=== PATIENT | female | born 1955 | race Caucasian/White ===

== ENCOUNTER → 2019-08-30 08:29 | Outpatient (CLI) | payer MEDICARE, OTHER, SELFPAY ==
[2019-08-30 09:00] LABS: Add Manual Diff / Slide Review NO; Basophils Absolute Auto 0 /uL (0-100); Basophils Percent Auto 0.5 % (0-2); Eosinophils Absolute Auto 100 /uL (0-450); Eosinophils Percent Auto 2.8 % (2-4); Hematocrit 36.9 % (36-46); Hemoglobin 12.4 g/dL (12.0-16.0); Lymphocytes Absolute Auto 1300 /uL (1100-4500); Lymphocytes Percent Auto 36.3 % (25-40); Mean Corpuscular HGB Conc 33.6 % (30-36); Mean Corpuscular Hemoglobin 30.9 PG (26-34); Mean Corpuscular Volume 91.9 fL (80-100); Monocytes Absolute Auto 300 /uL (0-900); Monocytes Percent Auto 9.5 % (3-14); Neutrophils Absolute Auto 1800 /uL (1500-7000); Neutrophils Percent Auto 50.9 % (50-75); Platelet Count 192 X10^3/uL (150-400); Red Blood Cell Count 4.01 X10^6/uL (4.0-5.2); Red Cell Distribution Width 12.8 % (11.6-14.8); White Blood Cell Count 3.5 X10^3/uL (4.5-11.0)
[2019-08-30 09:34] LABS: Alanine Aminotransferase 28 IU/L (<35); Albumin 4.5 g/dL (3.5-5.0); Albumin Globulin Ratio 1.5 (1.0-2.8); Alkaline Phosphatase 51 U/L (38-126); Aspartate Aminotransferase 32 IU/L (14-36); BUN Creatinine Ratio 28.8 (6-22); Bilirubin Total 0.7 mg/dL (0.2-1.3); Blood Urea Nitrogen 23 mg/dL (7-17); Calcium 9.5 mg/dL (8.4-10.2); Carbon Dioxide 32 mmol/L (22-32); Chloride 103 mmol/L (98-107); Cholesterol 180 mg/dL (140-199); Estimated Glomerular Filt Rate > 60.0 mL/min (>60); Globulin 3.1 g/dL (1.7-4.1); Glucose 87 mg/dL (80-110); HDL Cholesterol 46 mg/dL (40-60); HEMOLYSIS < 15 (0-50); LDL Cholesterol Calculated 112 mg/dL (<100); Potassium 4.1 mmol/L (3.4-5.1); Sodium 141 mmol/L (137-145); Total Protein 7.6 g/dL (6.3-8.2); Triglycerides 109 mg/dL (35-150)
[2019-08-30 10:04] LABS: Thyroid Stimulating Hormone 1.89 uIU/mL (0.47-4.68)
== END ==
PROVIDERS: Visit Provider Family Medicine
DX: Z13.0 Encounter for screening for diseases of the blood and blood-forming organs and certain disorders involving the immune mechanism (principal); Z13.1 Encounter for screening for diabetes mellitus; Z13.220 Encounter for screening for lipoid disorders; Z13.29 Encounter for screening for other suspected endocrine disorder; G47.33 Obstructive sleep apnea (adult) (pediatric)
CPT/HCPCS: 36415; 80053; 80061; 84443; 85025

== ENCOUNTER → 2019-12-26 09:30 | Outpatient (CLI) | payer MEDICARE, OTHER, SELFPAY ==
--- NOTE | 2019-12-26 09:36 | DI.RAD.S_ITS ---
PROCEDURE: XR HAND RT MIN 3V INDICATIONS: R thumb injury pain due to trauma TECHNIQUE: 3 views of the hand(s) acquired. COMPARISON: None. FINDINGS: Bones: No fractures or dislocations. A chronic appearing ossicle projecting at the thumb interphalangeal joint Carpal bones are normally aligned. No suspicious bony lesions. First CMC and triscaphe joint degeneration. Distal radioulnar joint degeneration. Focal marginal lucencies present at the PIP joint of the index finger. Small marginal lucency seen at the ulnar aspect of the second MCP joint. These are technically indeterminate in the absence of prior studies Soft tissues: No suspicious soft tissue calcifications. IMPRESSION: No fracture. If the patient's symptoms do not improve recommend followup radiographs in 10 days to assess for healing sclerosis/occult injury. Scattered right hand degenerative changes as above Dictated by: Brendon Fong M.D. on 12/26/2019 at 13:02 Approved by: Brendon Fong M.D. on 12/26/2019 at 13:05
== END ==
PROVIDERS: PCP Family Medicine; Referring Provider Nurse Practitioner; Visit Provider Nurse Practitioner
DX: M79.644 Pain in right finger(s) (principal)
CPT/HCPCS: 73130

== ENCOUNTER → 2020-08-15 11:51 | Outpatient (CLI) | payer MEDICARE, OTHER, SELFPAY | PROVIDERS: PCP Family Medicine; Visit Provider Physician Assistant | DX: R30.0 Dysuria (principal) | CPT/HCPCS: 87086 ==

== ENCOUNTER → 2020-08-15 12:34 | Outpatient (CLI) | payer MEDICARE, OTHER, SELFPAY ==
--- NOTE | 2020-08-15 | DI.CT.S_ITS ---
PROCEDURE: CT ABDOMEN PELVIS W CON INDICATIONS: ABDOMINAL PAIN TECHNIQUE: After the administration of oral and intravenous contrast, 5 mm thick sections acquired from the diaphragms to the symphysis. 5 mm thick coronal and sagittal reformats were performed. For radiation dose reduction, the following was used: automated exposure control, adjustment of mA and/or kV according to patient size. COMPARISON: None. FINDINGS: Image quality: Excellent. ABDOMEN: Lung bases: Lung bases are clear. Heart size is normal. Solid organs: Liver is normal in size and enhancement. Gallbladder is unremarkable . Biliary system is non-dilated. Pancreas enhances normally. Spleen is normal in size and enhancement. No adrenal nodules. Kidneys are normal in size and enhancement, without hydronephrosis. Peritoneum and bowel: Stomach, small bowel, and colon loops are normal in caliber and wall thickness. The appendix is likely visualized and appears thin walled and gas-filled. Ingested radiodense debris is present throughout the colon. There is trace low-density free pelvic fluid. Nodes and vessels: No retroperitoneal or mesenteric adenopathy. Aorta and inferior vena cava are normal in caliber. There are scattered atheromatous calcifications throughout the aorta and iliac arteries bilaterally. Miscellaneous: No ventral hernias. PELVIS: Genitourinary: Bladder wall thickness is normal. The uterus is not visualized and may be surgically absent. The bilateral ovaries are grossly unremarkable. A vaginal ring is noted. Miscellaneous: No inguinal hernias or adenopathy. Posterior right epidural nerve stimulator is noted at the level of the distal sacrum. Bones: No suspicious bony lesions. No vertebral body compression fractures. IMPRESSION: 1. No acute intra-abdominal findings. The appendix is likely visualized and appears normal. Dictated by: Ruma Wiley M.D. on 08/15/2020 at 15:48 Approved by: Ruma Wiley M.D. on 08/15/2020 at 15:52
[2020-08-15 12:53] LABS: Add Manual Diff / Slide Review NO; Basophils Absolute Auto 0 /uL (0-100); Basophils Percent Auto 0.4 % (0-2); Eosinophils Absolute Auto 0 /uL (0-450); Eosinophils Percent Auto 0.9 % (2-4); Hematocrit 36.4 % (36-46); Hemoglobin 12.2 g/dL (12.0-16.0); Lymphocytes Absolute Auto 1400 /uL (1100-4500); Lymphocytes Percent Auto 36.4 % (25-40); Mean Corpuscular HGB Conc 33.4 % (30-36); Mean Corpuscular Hemoglobin 30.3 PG (26-34); Mean Corpuscular Volume 90.6 fL (80-100); Monocytes Absolute Auto 400 /uL (0-900); Monocytes Percent Auto 10.5 % (3-14); Neutrophils Absolute Auto 1900 /uL (1500-7000); Neutrophils Percent Auto 51.8 % (50-75); Platelet Count 172 X10^3/uL (150-400); Red Blood Cell Count 4.02 X10^6/uL (4.0-5.2); Red Cell Distribution Width 12.7 % (11.6-14.8); White Blood Cell Count 3.7 X10^3/uL (4.5-11.0)
[2020-08-15 13:06] LABS: Alanine Aminotransferase 51 IU/L (<35); Albumin 4.3 g/dL (3.5-5.0); Albumin Globulin Ratio 1.4 (1.0-2.8); Alkaline Phosphatase 57 U/L (38-126); Aspartate Aminotransferase 43 IU/L (14-36); BUN Creatinine Ratio 23.2 (6-22); Bilirubin Total 0.4 mg/dL (0.2-1.3); Blood Urea Nitrogen 13 mg/dL (7-17); Carbon Dioxide 31 mmol/L (22-32); Chloride 106 mmol/L (98-107); Estimated Glomerular Filt Rate > 60.0 mL/min (>60); Glucose 94 mg/dL (80-110); HEMOLYSIS < 15 (0-50); Lipase 53 U/L (23-300); Potassium 3.8 mmol/L (3.4-5.1); Sodium 142 mmol/L (137-145); Total Protein 7.3 g/dL (6.3-8.2)
== END ==
PROVIDERS: PCP Family Medicine; Referring Provider Physician Assistant; Visit Provider Physician Assistant
DX: R10.9 Unspecified abdominal pain (principal); R30.0 Dysuria
CPT/HCPCS: 36415; 74177; 80053; 83690; 85025; 87086; Q9967

== ENCOUNTER 2020-08-30 09:52 | Emergency (ER) | payer MEDICARE, OTHER, SELFPAY ==
[2020-08-30] VITALS (12 sets, daily range): BP systolic 123–154; BP diastolic 63–83; PULSE 62–73; RESP 18; TEMP 36.4; O2SAT 97–99
[2020-08-30] MEDS: LIDOCAINE PATCH 1 EACH ADH..PATCH TOP (12:54)
[2020-08-30 13:22] LABS: Add Manual Diff / Slide Review NO; Basophils Absolute Auto 0 /uL (0-100); Basophils Percent Auto 0.3 % (0-2); Eosinophils Absolute Auto 100 /uL (0-450); Eosinophils Percent Auto 0.7 % (2-4); Hematocrit 40.1 % (36-46); Hemoglobin 13.4 g/dL (12.0-16.0); Lymphocytes Absolute Auto 1600 /uL (1100-4500); Lymphocytes Percent Auto 19.5 % (25-40); Mean Corpuscular HGB Conc 33.4 % (30-36); Mean Corpuscular Hemoglobin 30.2 PG (26-34); Mean Corpuscular Volume 90.5 fL (80-100); Monocytes Absolute Auto 600 /uL (0-900); Monocytes Percent Auto 7.7 % (3-14); Neutrophils Absolute Auto 5800 /uL (1500-7000); Neutrophils Percent Auto 71.8 % (50-75); Platelet Count 209 X10^3/uL (150-400); Red Blood Cell Count 4.43 X10^6/uL (4.0-5.2); Red Cell Distribution Width 12.6 % (11.6-14.8); White Blood Cell Count 8.1 X10^3/uL (4.5-11.0)
[2020-08-30 13:24] LABS: Lactate (Lactic Acid) 1.1 mmol/L (0.7-2.1)
[2020-08-30 13:28] LABS: Alanine Aminotransferase 40 IU/L (<35); Albumin 4.5 g/dL (3.5-5.0); Albumin Globulin Ratio 1.4 (1.0-2.8); Alkaline Phosphatase 53 U/L (38-126); Aspartate Aminotransferase 31 IU/L (14-36); BUN Creatinine Ratio 36.1 (6-22); Bilirubin Total 0.5 mg/dL (0.2-1.3); Blood Urea Nitrogen 22 mg/dL (7-17); Calcium 9.5 mg/dL (8.4-10.2); Carbon Dioxide 34 mmol/L (22-32); Chloride 100 mmol/L (98-107); Estimated Glomerular Filt Rate > 60.0 mL/min (>60); Globulin 3.3 g/dL (1.7-4.1); Glucose 122 mg/dL (80-110); HEMOLYSIS < 15 (0-50); Sodium 139 mmol/L (137-145); Total Protein 7.8 g/dL (6.3-8.2)
[2020-08-30 13:35] LABS: C-Reactive Protein Quant < 0.5 mg/dL (<1.0)
[2020-08-30 14:02] LABS: Erythrocyte Sedimentation Rate 5 MM/HR (0-20)
--- NOTE | 2020-08-30 14:02 | ED_ITS ---
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 Patient also reports numbness to left lateral mid thigh down to bottom of her foot associated with pain. Patient had completed 6 days course of prednisone 30 mg and she is currently on 20 mg on her 3rd day without any improvements. She reports from yesterday she also has low back pain with this. Patient usually does not use any ambulatory assistance devices but she has been using a cane due to increase in pain. Pain increases with sitting and lying down, raising her legs affected leg, and movements. Patient denies known trauma, falls, fever, chills, nausea or vomiting. Patient contributes the back pain to taking care and carrying the 1 year old grandchild. Patient denies urinary symptoms or changes in her stool incontinence. Patient denies numbness to her groin region. Patient had in the past back went out and had received physical therapy and the duration pain not as long as this time. Patient reports pain as 7/10 and with movements and ambulation pain increases up to 10/10. Patient denies history of back surgery or IV drug use. Patient is currently taking Celebrex, tramadol for chronic pain and she states I do not want more pain medications and declines even Tylenol since she has some abdominal pain couple of weeks ago with elevated liver function test which has resolved and seek medical attention at [facility] with lab tests and CT of abdomen/pelvis. Related Data Home Medications Medication Instructions Recorded Confirmed tramadol 50 mg tablet 50 mg PO Q4-6H PRN 11/11/18 08/15/20 zolpidem 12.5 mg tablet,extended 12.5 mg PO BEDTIME PRN 11/11/18 08/15/20 release,multiphase celecoxib 100 mg capsule 100 mg PO BID 04/21/19 08/15/20 gabapentin 600 mg tablet See Rx Instructions PO BID 04/21/19 08/15/20 tramadol 100 mg tablet,extended 100 mg PO BEDTIME tab 04/21/19 08/15/20 release 24 hr acetaminophen 500 mg tablet 1,000 mg PO .QD tab 12/26/19 08/15/20 cetirizine 10 mg tablet 10 mg PO DAILY PRN tab 12/26/19 08/15/20 cholecalciferol (vitamin D3) 50 2,000 unit PO DAILY 12/26/19 08/15/20 mcg (2,000 unit) capsule esomeprazole magnesium 20 mg 20 mg PO DAILY 12/26/19 08/15/20 capsule,delayed release levomefolate calcium 15 mg tablet 15 mg PO QID tab 12/26/19 08/15/20 Previous Rx's Medication Instructions Recorded estradiol 0.025 mg/24 hr 1 patch TRANSDERMAL 2XW #24 each 08/22/19 semiweekly transdermal patch albuterol sulfate 90 mcg/actuation 2 puff INHALATION Q4-6H PRN #8.5 10/10/19 aerosol inhaler gram bupropion HCl 300 mg 24 hr tablet, 300 mg PO QAM #90 tab 05/15/20 extended release lidocaine 1 patch TOP DAILY PRN #30 each 08/30/20 Allergies Allergy/AdvReac Type Severity Reaction Status Date / Time ceftriaxone [CEFTRIAXONE] Allergy Severe drug fever Verified 08/30/20 10:20 codeine [CODEINE] AdvReac Mild n\v Verified 08/30/20 10:20 hydrocodone [From VICODIN] AdvReac Mild n/v Verified 08/30/20 10:20 Review of Systems <RADHA Bundy - Last Filed: 08/30/20 20:54> Review of Systems Narrative: General: Denies fever, chills, fatigue, malaise, sweats. HEENT: Denies sinus pain, ear pain, sore throat, difficulty swallowing, dizziness. Respiratory: Denies dyspnea, cough, wheezing, hemoptysis, sputum. Cardiovascular: Denies chest pain, palpitations, orthopnea, edema. Gastrointestinal: Denies nausea, vomiting, abdominal pain, diarrhea, constipation, melena. : Denies dysuria, frequency, incontinence, hematuria, urinary retention. Musculoskeletal: See HPI Skin: Denies rash, skin lesions, or other. Neurologic: Denies weakness, headache, numbness, change in speech, confusion, seizures, incoordination. Psychiatric: No concerning psychosocial issues. 12-point review of systems is negative except for those stated above. 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) History of urinary incontinence (Chronic ~1985) Measles (Resolved) Migraines (Chronic) Mumps (Resolved) Osteoarthritis (Chronic ~2007) Polycystic kidney disease (Chronic) Recurrent sinusitis (Chronic) Seasonal allergies (Chronic) Sleep apnea (Chronic ~2009) Urinary retention (Chronic ~2002) Surgical History Anesthesia (Resolved) History of sinus surgery (Resolved) History of tonsillectomy (Resolved) 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 Head: Normal cephalic, atraumatic. No scalp or temporal tenderness, palpable mass or rash. EYES: Pupils are equal, round, and reactive to light and accommodation. Extraocular muscles are intact bilaterally. There is no subconjunctival hemorrhage, exudate and sclera non-icteric. ENT: Hearing grossly intact. Nose without bleeding, purulent discharge or deviation. Mucous membrane moist, no mucosal lesion. Throat without erythema, tonsillar hypertrophy or exudate. Uvula in midline, airway patent. Neck: Trachea in midline. No JVD, non-tender without lymphadenopathy. No masses or thyroid megaly. Supple, non-tender and no meningeal signs. CARDIAC: Normal regular rate and rhythm without murmurs, gallops, or rubs. No chest wall tenderness. No peripheral edema, cyanosis or pallor. Capillary refill is less than 2 seconds. RESPIRATORY: Lungs are clear to auscultate bilaterally. No cough, wheezes, rales, or rhonchi. No stridor, respiratory distress, increase work of breathing, or accessary muscle used. ABD: Abdomen soft, nontender and non-distended. No guarding or rebound tenderness to palpate. Bowel sounds are normal in all 4 quadrants. There is no palpable masses or organomegaly. EXT: Full painless ROM of all extremities with no loss of sensation, strength, effusion or edema. SKIN: Warm, dry, normal color for patient. No erythema, lesions or rash over visible areas. BACK: No deformity or crepitance. No flank tenderness. No mid spinous tenderness or paraspinous tenderness, mass, erythema, or crepitus appreciated. Left back pain with left leg raise >45 degree. Bilateral lower extremity strength equal. Intact sensation of light touch on bilateral lower extremities but reports slightly decreased in left lateral lower extremity. NEUROLOGICAL: Alert and oriented to place, time and person. Sensation and motor function intact bilaterally. No facial droops, dysphasia. PSYCHIATRIC: Good judgement and reason, without hallucinations, abnormal affect or abnormal behaviors during the examination. Patient is not suicidal. Initial Vital Signs Initial Vital Signs: Vital Signs Temperature 97.5 F L 08/30/20 10:13 Pulse Rate 73 08/30/20 10:13 Respiratory Rate 18 08/30/20 10:13 Blood Pressure 137/72 08/30/20 10:13 Pulse Oximetry 99 08/30/20 10:13 <Doreen Romero, DO - Last Filed: 09/04/20 07:21> Initial Vital Signs Initial Vital Signs: Vital Signs Temperature 97.5 F L 08/30/20 10:13 Pulse Rate 73 08/30/20 10:13 Respiratory Rate 18 08/30/20 10:13 Blood Pressure 137/72 08/30/20 10:13 Pulse Oximetry 99 08/30/20 10:13 Scores <[facility] - Last Filed: 08/30/20 20:54> GCS Kiah coma scale eye opening: Spontaneous [place] coma scale verbal response: Orientated [place] coma scale motor response: Obey commands [place] coma scale total score: 15 qSOFA Altered Mental Status (GCS <15): No Respiratory rate greater than/equal to 22: No Systolic blood pressure less than or equal to 100: No qSOFA Total: 0 0-1 Not High Risk 1-3 High risk Course <[facility] - Last Filed: 08/30/20 20:54> Orders Ordered: Discontinued Medications Lidocaine (Lidoderm) 1 each TOP NOW ONE Stop: 08/30/20 12:43 Last Admin: 08/30/20 12:54 Dose: 1 each Documented by: YIN Reevaluation(s) Reevaluation #1: Patient continue to contact to get information of nerve stimulator in right sacrum Time: 14:12 Reevaluation #2: Patient was able to get information on her nerve stimulator and was recommended no MRI test at this time. X-ray test of lumbar and sacrum ordered. Time: 14:15 Vital Signs Vital signs: Vital Signs - 8 hr 08/30/20 13:00 08/30/20 13:05 08/30/20 13:30 Pulse Rate 65 66 68 Blood Pressure 136/63 141/64 H Pulse Oximetry 98 98 98 08/30/20 14:00 08/30/20 14:42 08/30/20 15:00 Pulse Rate 70 66 64 Blood Pressure 132/70 153/67 H 123/83 Pulse Oximetry 97 98 97 <Doreen Romero DO - Last Filed: 09/04/20 07:21> Orders Ordered: Discontinued Medications Lidocaine (Lidoderm) 1 each TOP NOW ONE Stop: 08/30/20 12:43 Last Admin: 08/30/20 12:54 Dose: 1 each Documented by: DHALE Vital Signs Vital signs: Vital Signs - 8 hr 08/30/20 13:00 08/30/20 13:05 08/30/20 13:30 Pulse Rate 65 66 68 Blood Pressure 136/63 141/64 H Pulse Oximetry 98 98 98 08/30/20 14:00 08/30/20 14:42 08/30/20 15:00 Pulse Rate 70 66 64 Blood Pressure 132/70 153/67 H 123/83 Pulse Oximetry 97 98 97 MDM - Back Pain/Injury <RADHA Bundy - Last Filed: 08/30/20 20:54> Differential Diagnosis Differential diagnosis: Likely lumbar radiculopathy, sciatica, discitis and other (Cauda equina syndrome, ) Medical Records Attestation: I reviewed the patient's medical records. Lab Data Attestation: I reviewed the patient's lab results. Result diagrams: 08/30/20 13:02 08/30/20 13:02 Labs: Lab Results 08/30/20 08/30/20 08/30/20 Range/Units 13:02 13:02 13:02 WBC 8.1 (4.5-11.0) X10^3/uL RBC 4.43 (4.0-5.2) X10^6/uL Hgb 13.4 (12.0-16.0) g/dL Hct 40.1 (36-46) % MCV 90.5 (80-100) fL MCH 30.2 (26-34) PG MCHC 33.4 (30-36) % RDW 12.6 (11.6-14.8) % Plt Count 209 (150-400) X10^3/uL Neut % (Auto) 71.8 (50-75) % Lymph % (Auto) 19.5 L (25-40) % [place] % (Auto) 7.7 (3-14) % Eos % (Auto) 0.7 L (2-4) % Baso % (Auto) 0.3 (0-2) % Neut # (Auto) 5800 (6646-6887) /uL Lymph # (Auto) 1600 (3384-8275) /uL [place] # (Auto) 600 (0-900) /uL Eos # (Auto) 100 (0-450) /uL Baso # (Auto) 0 (0-100) /uL ESR 5 (0-20) MM/HR Sodium 139 (137-145) mmol/L Potassium 4.0 (3.4-5.1) mmol/L Chloride 100 (98-107) mmol/L Carbon Dioxide 34 H (22-32) mmol/L BUN 22 H (7-17) mg/dL Creatinine 0.61 (0.52-1.04) mg/dL Estimated GFR > 60.0 (>60) mL/min BUN/Creatinine Ratio 36.1 H (6-22) Glucose 122 H (80-110) mg/dL Lactate 1.1 (0.7-2.1) mmol/L Calcium 9.5 (8.4-10.2) mg/dL Total Bilirubin 0.5 (0.2-1.3) mg/dL AST 31 (14-36) IU/L ALT 40 H (<35) IU/L Alkaline Phosphatase 53 (38-126) U/L C-Reactive Protein < 0.5 (<1.0) mg/dL Total Protein 7.8 (6.3-8.2) g/dL Albumin 4.5 (3.5-5.0) g/dL Globulin 3.3 (1.7-4.1) g/dL Albumin/Globulin Ratio 1.4 (1.0-2.8) Urine Dip Bedside Urine Glucose Negative Bedside Urine Bilirubin - Negative Bedside Urine Ketone - Negative Urine Specific [place] 1.010 Bedside Urine Occult Blood - Negative Bedside Urine pH 6.5 Bedside Urine Protein - Negative Bedside Urine Urobilinogen - Negative Bedside Urine Nitrite - Negative Bedside Urine Leukocytes - Negative Esterase Imaging Data XR-Lumbar: Radiologist's Impression: [address] [address] XRay Report Signed Patient: Sara Smith FMR#: [id number] : 4Acct:[id number] Age/Sex: 65 / FDate of Service: 08/30/20 Loc: ED Accession Number: [id number] Procedure: XR lumbar spine 2-3V Ordering Provider: Heber Sotelo PROCEDURE: XR LUMBAR SPINE 2-3V INDICATIONS: pain, numbness to left leg TECHNIQUE: 3 views of the lumbar spine were acquired. COMPARISON: [facility], CT, CT ABDOMEN PELVIS W CON, 08/15/2020, 14:33. [facility], CR, XR SACRUM COCCYX MIN 2V, 08/30/2020, 14:31. FINDINGS: Bones: 5 [id number] vertebrae are present. There is minimal anterolisthesis at L5-S1. No vertebral body compression fractures. No suspicious bony lesions. Degenerative changes are seen, with moderate to severe disc space narrowing at L2-3, L3-4, and L4-5. Mild disc space narrowing is seen at L5-S1. Endplate irregularity and sclerosis are seen, which are most prominent at L3-L4. Bridging endplate osteophytes are seen on the right at L3-4. Lower lumbar spine facet arthropathy is seen. Soft tissues: Overlying bowel gas pattern is normal. No suspicious soft tissue calcifications. There is a right-sided sacral stimulator seen. Sterilization clips are seen on both sides. IMPRESSION: Degenerative changes are seen throughout, without an acute abnormality seen. Right-sided sacral stimulator noted. Dictated by: Loy Amezcua M.D. on 08/30/2020 at 13:46 Approved by: Loy Amezcua M.D. on 08/30/2020 at 13:47 XR-Sacrum and coccyx: Radiologist's Impression: [place] [address] XRay Report Signed Patient: Sara Smith FMR#: [id number] : 4Acct:[id number] Age/Sex: 65 / FDate of Service: 08/30/20 Loc: ED Accession Number: [id number] Procedure: XR sacrum coccyx min 2V Ordering Provider: Heber Sotelo PROCEDURE: XR SACRUM COCCYX MIN 2V INDICATIONS: pain, numbness to left leg TECHNIQUE: 3 views of the sacrum and coccyx acquired. COMPARISON: [facility], CR, XR LUMBAR SPINE 2-3V, 08/30/2020, 14:31. [facility], CT, CT ABDOMEN PELVIS W CON, 08/15/2020, 14:33. FINDINGS: Bones: No fractures or dislocations. No suspicious bony lesions. Age- appropriate lower lumbar spine degenerative changes are noted. Soft tissues: Visualized bowel gas pattern is normal. No suspicious soft tissue densities. There is a right-sided sacral stimulator seen. Bilateral sterilization clips are seen. IMPRESSION: Unremarkable plain films of the sacrum and coccyx. Dictated by: Loy Amezcua M.D. on 08/30/2020 at 13:48 Approved by: Loy Amezcua M.D. on 08/30/2020 at 13:4 [facility] Narrative Medical decision making narrative: This is a 65 year female with chief complain of nontraumatic left buttock pain radiating down to left ankle and numbness to left later mid thigh to heel. Patient has been taking Prednisone for tapering dose for 9 days from 30mg to now on 20mg daily without improvement. She is also taking Celebrex daily for osteoarthritis. Patient declines taking Tylenol due to recent but resolved abdominal pain with mildly elevated ALT to 40 and contributes to daily Tylenol use at least 2 to 3 times a day for pain. MRI test was considered and was able to obtain at 1500 this afternoon but due to nerve stimulator for fecal incontinence the patient has in right sacrum region, MRI test cancelled after the patient consulted other medical provider whether MRI test could be done. Patient declined other medications but is willing to try lidocaine patch for back pain. Lumbar and sacrum x-ray test was ordered instead and obtained. Lumbar x-ray test shows degenerative changes without acute abnormality with moderate to severe disc space narrowing at L2-L3, L3-L4, and L4-L5 and mild disc space narrowing at L5-S1. Sacrum x-ray without acute fractures or dislocations and there is a right-sided sacral stimulator seen. Patient recommended to follow up with primary care physician for considering physical therapy, and to follow-up with [facility] orthopedist for further evaluation and treatment. Patient is discharged to home with lidocaine patch to use as needed. Return precautions were discussed and Patient verbalized understanding in in agreement with the treatment plan <Doreen Romero, DO - Last Filed: 09/04/20 07:21> Lab Data Labs: Lab Results 08/30/20 08/30/20 08/30/20 Range/Units 13:02 13:02 13:02 WBC 8.1 (4.5-11.0) X10^3/uL RBC 4.43 (4.0-5.2) X10^6/uL Hgb 13.4 (12.0-16.0) g/dL Hct 40.1 (36-46) % MCV 90.5 (80-100) fL MCH 30.2 (26-34) PG MCHC 33.4 (30-36) % RDW 12.6 (11.6-14.8) % Plt Count 209 (150-400) X10^3/uL Neut % (Auto) 71.8 (50-75) % Lymph % (Auto) 19.5 L (25-40) % [place] % (Auto) 7.7 (3-14) % Eos % (Auto) 0.7 L (2-4) % Baso % (Auto) 0.3 (0-2) % Neut # (Auto) 5800 (0350-6879) /uL Lymph # (Auto) 1600 (6086-6010) /uL [place] # (Auto) 600 (0-900) /uL Eos # (Auto) 100 (0-450) /uL Baso # (Auto) 0 (0-100) /uL ESR 5 (0-20) MM/HR Sodium 139 (137-145) mmol/L Potassium 4.0 (3.4-5.1) mmol/L Chloride 100 (98-107) mmol/L Carbon Dioxide 34 H (22-32) mmol/L BUN 22 H (7-17) mg/dL Creatinine 0.61 (0.52-1.04) mg/dL Estimated GFR > 60.0 (>60) mL/min BUN/Creatinine Ratio 36.1 H (6-22) Glucose 122 H (80-110) mg/dL Lactate 1.1 (0.7-2.1) mmol/L Calcium 9.5 (8.4-10.2) mg/dL Total Bilirubin 0.5 (0.2-1.3) mg/dL AST 31 (14-36) IU/L ALT 40 H (<35) IU/L Alkaline Phosphatase 53 (38-126) U/L C-Reactive Protein < 0.5 (<1.0) mg/dL Total Protein 7.8 (6.3-8.2) g/dL Albumin 4.5 (3.5-5.0) g/dL Globulin 3.3 (1.7-4.1) g/dL Albumin/Globulin Ratio 1.4 (1.0-2.8) Urine Dip Bedside Urine Glucose Negative Bedside Urine Bilirubin - Negative Bedside Urine Ketone - Negative Urine Specific [place] 1.010 Bedside Urine Occult Blood - Negative Bedside Urine pH 6.5 Bedside Urine Protein - Negative Bedside Urine Urobilinogen - Negative Bedside Urine Nitrite - Negative Bedside Urine Leukocytes - Negative Esterase Discharge Plan Departure Patient Disposition: Home Clinical Impression: Low back pain radiating to left leg Discharge Date/Time: 08/30/20 15:38 Instructions: DI for Low Back Pain Activity Restrictions/Additional Instructions: You have been diagnosed with [lumbar and sacral pain radiating to left leg with numbness to lateral leg]. What to do: *Take your medications as directed. Please continue with your medications and had Voltaren gel and lidocaine patch. Lidocaine patch stays on for 12 hours and off for 12 hours. You can use for tear in gel up to 3 to 4 times a day on affected site. *Follow up with your primary care provider/[facility] in 2-3 days, call for an appointment. Let them know you were seen in the ED and that we asked you to be seen in follow up. *Return to ED if you have any new, worsening, or concerning symptoms, such as [worsening pain, weakness/tingling, fever, groin numbness, different or worsening incontinence for stools or bladder, chest pain, breathing difficulty or any acute concerns.]. Prescriptions: New lidocaine 5 % adhesive patch,medicated 1 patch TOP DAILY PRN (Reason: pain) Qty: 30 RF: 0 No Action zolpidem 12.5 mg tablet,ext release multiphase 12.5 mg PO BEDTIME PRNRF: 0 tramadol 50 mg tablet 50 mg PO Q4-6H PRNRF: 0 celecoxib 100 mg capsule 100 mg PO BID RF: 0 tramadol 100 mg tablet extended release 24 hr 100 mg PO BEDTIME RF: 0 gabapentin 600 mg tablet See Rx Instructions PO BID RF: 0 estradiol [Vivelle-Dot] 0.025 mg/24 hr patch semiweekly 1 patch Transdermal 2XW Qty: 24 RF: 3 albuterol sulfate 90 mcg/actuation HFA aerosol inhaler 2 puff INHALATION Q4-6H PRN (Reason: bronchospasm) Qty: 8.5 RF: 11 bupropion HCl [Wellbutrin XL] 300 mg tablet extended release 24 hr 300 mg PO QAM Qty: 90 RF: 1 esomeprazole magnesium 20 mg capsule,delayed release(DR/EC) 20 mg PO DAILY RF: 0 cetirizine [Zyrtec] 10 mg tablet 10 mg PO DAILY PRNRF: 0 acetaminophen 500 mg tablet 1,000 mg PO .QD RF: 0 levomefolate calcium [L-Methylfolate] 15 mg tablet 15 mg PO QID RF: 0 cholecalciferol (vitamin D3) 50 mcg (2,000 unit) capsule 2,000 unit PO DAILY RF: 0 Referrals: [facility] [Provider Group] Trudi Pereyra DO [Primary Care Provider] - <Doreen Romero DO - Last Filed: 09/04/20 07:21> Cosign ED Attending Cosignature Attestation: I was immediately available in the department for consultation. This documentation has been reviewed. Supervised by Doreen Romero DO
--- NOTE | 2020-08-30 14:14 | DI.RAD.S_ITS ---
PROCEDURE: XR SACRUM COCCYX MIN 2V INDICATIONS: pain, numbness to left leg TECHNIQUE: 3 views of the sacrum and coccyx acquired. COMPARISON: [facility], CR, XR LUMBAR SPINE 2-3V, 08/30/2020, 14:31. [facility], CT, CT ABDOMEN PELVIS W CON, 08/15/2020, 14:33. FINDINGS: Bones: No fractures or dislocations. No suspicious bony lesions. Age-appropriate lower lumbar spine degenerative changes are noted. Soft tissues: Visualized bowel gas pattern is normal. No suspicious soft tissue densities. There is a right-sided sacral stimulator seen. Bilateral sterilization clips are seen. IMPRESSION: Unremarkable plain films of the sacrum and coccyx. Dictated by: Loy Amezcua M.D. on 08/30/2020 at 13:48 Approved by: Loy Amezcua M.D. on 08/30/2020 at 13:48
--- NOTE | 2020-08-30 14:14 | DI.RAD.S_ITS ---
PROCEDURE: XR LUMBAR SPINE 2-3V INDICATIONS: pain, numbness to left leg TECHNIQUE: 3 views of the lumbar spine were acquired. COMPARISON: [facility], CT, CT ABDOMEN PELVIS W CON, 08/15/2020, 14:33. [facility], CR, XR SACRUM COCCYX MIN 2V, 08/30/2020, 14:31. FINDINGS: Bones: 5 [id number] vertebrae are present. There is minimal anterolisthesis at L5-S1. No vertebral body compression fractures. No suspicious bony lesions. Degenerative changes are seen, with moderate to severe disc space narrowing at L2-3, L3-4, and L4-5. Mild disc space narrowing is seen at L5-S1. Endplate irregularity and sclerosis are seen, which are most prominent at L3-L4. Bridging endplate osteophytes are seen on the right at L3-4. Lower lumbar spine facet arthropathy is seen. Soft tissues: Overlying bowel gas pattern is normal. No suspicious soft tissue calcifications. There is a right-sided sacral stimulator seen. Sterilization clips are seen on both sides. IMPRESSION: Degenerative changes are seen throughout, without an acute abnormality seen. Right-sided sacral stimulator noted. Dictated by: Loy Amezcua M.D. on 08/30/2020 at 13:46 Approved by: Loy Amezcua M.D. on 08/30/2020 at 13:47
== END 2020-08-30 15:38 | disposition home or self-care (01) ==
PROVIDERS: Emergency Provider Nurse Practitioner Family; PCP Family Medicine
DX: M54.5 Low back pain (principal); M79.605 Pain in left leg; R20.0 Anesthesia of skin
CPT/HCPCS: 36415; 72100; 72220; 80053; 81003; 83605; 85025; 85651; 86140; 99284

== ENCOUNTER → 2021-04-07 17:22 | Outpatient (CLI) | payer MEDICARE, OTHER, SELFPAY ==
--- NOTE | 2021-04-07 17:26 | DI.RAD.S_ITS ---
PROCEDURE: XR HAND RT MIN 3V INDICATIONS: pain TECHNIQUE: 3 views of the hand(s) acquired. COMPARISON: [facility], CR, XR HAND RT MIN 3V, 12/26/2019, 9:31. FINDINGS: Bones: No fractures or dislocations. Carpal bones are normally aligned. No suspicious bony lesions. First carpometacarpal joint space narrowing subchondral cysts noted. Soft tissues: No suspicious soft tissue calcifications. IMPRESSION: 1st carpometacarpal osteoarthritis Dictated by: Joseph Davis M.D. on 04/07/2021 at 17:10 Approved by: Joseph Davis M.D. on 04/07/2021 at 17:12
== END ==
PROVIDERS: PCP Family Medicine; Referring Provider Physician Assistant; Visit Provider Physician Assistant
DX: S66.911A Strain of unspecified muscle, fascia and tendon at wrist and hand level, right hand, initial encounter (principal); M79.641 Pain in right hand; M19.041 Primary osteoarthritis, right hand; X58.XXXA Exposure to other specified factors, initial encounter
CPT/HCPCS: 73130

== ENCOUNTER → 2021-05-14 14:32 | Outpatient (CLI) | payer MEDICARE, OTHER, SELFPAY ==
--- NOTE | 2021-05-14 14:34 | DI.MG.S_ITS ---
BILATERAL DIGITAL SCREENING MAMMOGRAM 3D/2D WITH CAD: 05/14/2021 CLINICAL: Routine screening. Comparison is made to exams dated: 02/14/2019 mammogram, 01/17/2018 mammogram, and 12/28/2016 mammogram - outside location. The tissue of both breasts is heterogeneously dense. This may lower the sensitivity of mammography. Current study was also evaluated with a Computer Aided Detection (CAD) system. No significant masses, calcifications, or other findings are seen in either breast. There has been no significant interval change. IMPRESSION: NEGATIVE There is no mammographic evidence of malignancy. A 1 year screening mammogram is recommended. This exam was interpreted at Station ID: [id number]. NOTE: For mammograms, a report in lay terms will be sent to the patient. Approximately 15% of breast malignancies will not be visualized mammographically. In the management of a palpable breast mass, a negative mammogram must not discourage biopsy of a clinically suspicious lesion. Electronically Signed By: Jayden naidu/rose marie:05/14/2021 15:16:14 letter sent: Normal Exam ACR BI-RADS Category 1: Negative 3341F
== END ==
PROVIDERS: PCP Family Medicine; Referring Provider Family Medicine; Visit Provider Family Medicine
DX: Z12.31 Encounter for screening mammogram for malignant neoplasm of breast (principal); Z78.0 Asymptomatic menopausal state; Z79.890 Hormone replacement therapy
CPT/HCPCS: 77063; 77067; 77080

== ENCOUNTER → 2022-07-14 11:12 | Outpatient (CLI) | payer MEDICARE, OTHER, SELFPAY ==
--- NOTE | 2022-07-14 | DI.MG.S_ITS ---
BILATERAL DIGITAL SCREENING MAMMOGRAM 3D/2D WITH CAD: 07/14/2022 CLINICAL: Routine screening. Comparison is made to exams dated: 05/14/2021 mammogram - [facility], 02/14/2019 mammogram, and 01/17/2018 mammogram - outside location. Both breasts are heterogeneously dense, which may obscure small masses (category c / 51-75% glandular tissue). Current study was also evaluated with a Computer Aided Detection (CAD) system. No significant masses, calcifications, or other findings are seen in either breast. There has been no significant interval change. IMPRESSION: NEGATIVE There is no mammographic evidence of malignancy. A 1 year screening mammogram is recommended. Based on the Tyrer Cuzick model (a risk assessment model) the patient's lifetime risk is 8.6% and her 10 year risk is 4.9%. According to the ACR, ACS, and NCCN guidelines, an annual breast MRI exam along with mammogram is recommended if the patient's lifetime risk is 20% or greater. This exam was interpreted at Station ID: [id number]. NOTE: For mammograms, a report in lay terms will be sent to the patient. Approximately 15% of breast malignancies will not be visualized mammographically. In the management of a palpable breast mass, a negative mammogram must not discourage biopsy of a clinically suspicious lesion. Electronically Signed By: Antony bautista/rose marie:07/14/2022 18:02:33 letter sent: Normal Exam ACR BI-RADS Category 1: Negative 3341F
== END ==
PROVIDERS: PCP Family Medicine; Referring Provider Family Medicine; Visit Provider Family Medicine
DX: Z12.31 Encounter for screening mammogram for malignant neoplasm of breast (principal)
CPT/HCPCS: 77063; 77067

== ENCOUNTER → 2022-12-14 08:57 | Outpatient (CLI) | payer MEDICARE, OTHER, SELFPAY ==
[2022-12-14 11:12] LABS: Add Manual Diff / Slide Review NO; Basophils Absolute Auto 0 /uL (0-100); Basophils Percent Auto 0.8 % (0-2); Eosinophils Absolute Auto 100 /uL (0-450); Eosinophils Percent Auto 2.9 % (2-4); Hematocrit 37.2 % (36-46); Hemoglobin 12.2 g/dL (12.0-16.0); Lymphocytes Absolute Auto 1100 /uL (1100-4500); Lymphocytes Percent Auto 28.5 % (25-40); Mean Corpuscular HGB Conc 32.8 % (30-36); Mean Corpuscular Hemoglobin 29.3 PG (26-34); Mean Corpuscular Volume 89.2 fL (80-100); Monocytes Absolute Auto 300 /uL (0-900); Monocytes Percent Auto 7.3 % (3-14); Neutrophils Absolute Auto 2400 /uL (1500-7000); Neutrophils Percent Auto 60.5 % (50-75); Platelet Count 207 X10^3/uL (150-400); Red Blood Cell Count 4.18 X10^6/uL (4.0-5.2)
[2022-12-14 11:40] LABS: Alanine Aminotransferase 29 IU/L (<35); Albumin 4.3 g/dL (3.5-5.0); Albumin Globulin Ratio 1.3 (1.0-2.8); Alkaline Phosphatase 57 U/L (38-126); Aspartate Aminotransferase 32 IU/L (14-36); BUN Creatinine Ratio 26.2 (6-22); Bilirubin Total 0.4 mg/dL (0.2-1.3); Blood Urea Nitrogen 16 mg/dL (7-17); Carbon Dioxide 30 mmol/L (22-32); Chloride 103 mmol/L (98-107); Cholesterol 183 mg/dL (140-199); Estimated Glomerular Filt Rate > 60 mL/min (>60); Globulin 3.4 g/dL (1.7-4.1); Glucose 91 mg/dL (80-110); HDL Cholesterol 51 mg/dL (40-60); HEMOLYSIS 17 (0-50); LDL Cholesterol Calculated 113 mg/dL (<100); Potassium 4.4 mmol/L (3.4-5.1); Sodium 140 mmol/L (137-145); Total Protein 7.7 g/dL (6.3-8.2); Triglycerides 95 mg/dL (35-150)
[2022-12-14 11:45] LABS: HEMOLYSIS < 15 (0-50); Iron 62 ug/dL (37-170)
[2022-12-14 11:56] LABS: Percent Iron Saturation 17 % (15-50); Total Iron Binding Capacity 365 ug/dL (265-497); Transferrin 267 mg/dL (206-381)
[2022-12-14 12:14] LABS: Ferritin 25 ng/mL (11-264)
[2022-12-14 12:18] LABS: TSH w/ Reflex to FT4 2.23 uIU/mL (0.47-4.68)
== END ==
PROVIDERS: PCP Family Medicine; Referring Provider Physician Assistant; Visit Provider Physician Assistant
DX: R55 Syncope and collapse (principal); G47.33 Obstructive sleep apnea (adult) (pediatric); R53.83 Other fatigue; R01.1 Cardiac murmur, unspecified; Z13.220 Encounter for screening for lipoid disorders; Z13.6 Encounter for screening for cardiovascular disorders
CPT/HCPCS: 36415; 80053; 80061; 82728; 83540; 83550; 84443; 85025

== ENCOUNTER → 2022-12-14 08:59 | Outpatient (CLI) | payer MEDICARE, OTHER, SELFPAY ==
--- NOTE | 2022-12-14 09:01 | DI.RAD.S_ITS ---
PROCEDURE: XR CHEST 2V INDICATIONS: Syncopal episode TECHNIQUE: 2 views of the chest were acquired. COMPARISON: Merged With [facility], , CHEST 2 VIEW, 02/16/2017, 10:52. FINDINGS: Surgical changes and devices: None. Lungs and pleura: Lungs are clear. No pleural effusions or pneumothorax. Mediastinum: Mediastinal contours are normal. Heart size is normal. Bones and chest wall: No suspicious bony abnormalities. Soft tissues appear unremarkable. IMPRESSION: No acute cardiopulmonary process. Dictated by: Harshil Lema M.D. on 12/14/2022 at 9:43 Approved by: Harshil Lema M.D. on 12/14/2022 at 9:43
--- NOTE | 2022-12-14 09:01 | DI.ECHO.S_ITS ---
[facility]---------+ [facility] +---------+ : : [address] : : : : [id number] : : : : Phone: [phone]+ Echocardiogram Report + + :Name: LANRE DINH Study Date: 12/14/2022 Height: 69 in : :[facility] ReadingLocation: Weight: 180 lb : :Account #: [facility] Gender: Female BSA: 2.0 m2 : :: 1955 Age: 67 yrs BP: 141/71 mmHg: :Reason For Study: SYNCOPE : :Ordering Physician: LILIAM, : :KRISTINA Hanna Performed By: Nathaly Aleman : :Referring: KRISTINA RICKETTS : + + Interpretation Summary 1) Normal left ventricular thickness, size, wall motion, and systolic function (EF 55-60%). 2) Mildly enlarged right ventricle with normal function. 3) There is mild to moderate mitral regurgitation. 4) No prior Echo available for comparison. Procedure: A two-dimensional transthoracic echocardiogram with color flow and Doppler was performed. The study quality was technically adequate. There is no prior echocardiogram noted for this patient. The patient was in sinus rhythm with heart rates between 63-70 bpm during the exam. Left Ventricle: The left ventricle is normal in size and wall thickness. The ejection fraction is estimated to be 55-60%. Left ventricular systolic function appears normal without focal wall motion abnormalities. Diastolic parameters suggest a relaxation abnormality of the left ventricle, consistent with probable normal filling pressures. Right Ventricle: The right ventricle is mildly dilated. The right ventricular systolic function is normal. Atria: The left atrium is moderately dilated. Right atrial size is normal. There is no Doppler evidence for an interatrial shunt. Mitral Valve: The mitral valve is normal in structure and function. There is mild to moderate mitral regurgitation. Aortic Valve: The aortic valve is trileaflet. The aortic valve opens well. There is no aortic valve stenosis. No aortic regurgitation is present. Tricuspid Valve: The tricuspid valve is normal in structure and function. There is mild tricuspid regurgitation. The right ventricular systolic pressure is estimated to be at least 35 mmHg based on an estimated right atrial pressure of 3 mm Hg. Pulmonic Valve: The pulmonic valve leaflets are thin and pliable; valve motion is normal. There is mild pulmonic regurgitation. Great Vessels: The aortic root is normal size. The dimensions of the ascending aorta are normal. The IVC is of normal diameter and collapses greater than 50% with a sniff. This suggests a low right atrial pressure of 3 mm Hg. Pericardium/ Pleura There is no pericardial effusion. There is no pleural effusion. MMode/2D Measurements & Calculations LVIDd: 5.0 cm LVOT diam: 2.0 cm LVIDs: 3.6 cm Ao root diam: 2.8 cm FS: 29.0 % asc Aorta Diam: 3.0 cm IVSd: 0.78 cm Ao Arch Diam (Prox Trans): 2.4 cm LVPWd: 0.77 cm LV cerrato. diameter/BSA (cm/m^2): 2.5 LV sys. diameter/BSA (cm/m^2): 1.8 LA A2 area: 23.6 cm2 RA long axis: 5.2 cm LA A4 area: 18.3 cm2 RA area: 16.6 cm2 LA length (vol): 5.3 cm RA vol: 45.0 ml LA vol: 69.3 ml RA : 22.8 ml/m2 LA vol index: 35.1 ml/m2 IVC diam: 1.7 cm RVD1 (basal): 4.1 cm RVD2 (mid): 3.5 cm TAPSE: 2.7 cm Doppler Measurements & Calculations Ao V2 max: 146.6 cm/sec LVOT Max Everton: 92.4 cm/sec Ao V2 mean: 103.1 cm/sec LV V1 max P.4 mmHg Ao max P.6 mmHg LV V1 VTI: 22.6 cm Ao mean P.6 mmHg SUREKHA(I,D): 1.9 cm2 Ao V2 VTI: 37.3 cm SUREKHA(V,D): 2.0 cm2 sev ratio: 0.61 SUREKHA indexed to BSA (cm^2/m^2): 0.95 MV E max everton: 99.9 cm/sec TR max everton: 279.3 cm/sec MV A max everton: 94.2 cm/sec TR max P.2 mmHg MV E/A: 1.1 PA V2 max: 104.1 cm/sec Med Peak E' Everton: 8.3 cm/sec PA V2 mean: 75.7 cm/sec E/E' med: 12.1 PA mean P.5 mmHg Lat Peak E' Everton: 8.8 cm/sec PA pr(Accel): 22.5 mmHg E/E' lat: 11.3 E/e' average: 11.7 MV dec time: 0.28 sec SV(LVOT): 70.1 ml Reading Physician:03:46 PM
== END ==
PROVIDERS: PCP Family Medicine; Referring Provider Physician Assistant; Visit Provider Physician Assistant
DX: I08.1 Rheumatic disorders of both mitral and tricuspid valves (principal); R55 Syncope and collapse; R01.1 Cardiac murmur, unspecified; G47.33 Obstructive sleep apnea (adult) (pediatric); R53.83 Other fatigue; Z13.220 Encounter for screening for lipoid disorders; Z13.6 Encounter for screening for cardiovascular disorders
CPT/HCPCS: 36415; 71046; 80053; 80061; 82728; 83540; 83550; 84443; 85025; 93242; 93306

== ENCOUNTER → 2022-12-14 13:40 | Outpatient (CLI) | payer MEDICARE, OTHER, SELFPAY | PROVIDERS: PCP Family Medicine; Referring Provider Physician Assistant; Visit Provider Physician Assistant | CPT/HCPCS: 93242 ==

== ENCOUNTER → 2023-07-26 14:59 | Outpatient (CLI) | payer MEDICARE, OTHER, SELFPAY ==
--- NOTE | 2023-07-26 | DI.MG.S_ITS ---
BILATERAL DIGITAL SCREENING MAMMOGRAM 3D/2D WITH CAD: 07/26/2023 CLINICAL: Routine screening. Comparison is made to exams dated: 07/14/2022 mammogram, 05/14/2021 mammogram - [facility], and 02/14/2019 mammogram - outside location. There are scattered areas of fibroglandular density in both breasts (category b / 25%-50% glandular tissue). Current study was also evaluated with a Computer Aided Detection (CAD) system. No significant masses, calcifications, or other findings are seen in either breast. IMPRESSION: NEGATIVE There is no mammographic evidence of malignancy. A 1 year screening mammogram is recommended. Based on the Tyrer Cuzick model (a risk assessment model) the patient's lifetime risk is 5.4% and her 10 year risk is 3.2%. According to the ACR, ACS, and NCCN guidelines, an annual breast MRI exam along with mammogram is recommended if the patient's lifetime risk is 20% or greater. This exam was interpreted at Station ID: [id number]. NOTE: For mammograms, a report in lay terms will be sent to the patient. Approximately 15% of breast malignancies will not be visualized mammographically. In the management of a palpable breast mass, a negative mammogram must not discourage biopsy of a clinically suspicious lesion. Electronically Signed By: Christina ag/rose marie:07/27/2023 08:33:24 letter sent: Normal Exam ACR BI-RADS Category 1: Negative 3341F
== END ==
PROVIDERS: PCP Student in an Organized Health Care Education/Training Program; Referring Provider Student in an Organized Health Care Education/Training Program; Visit Provider Student in an Organized Health Care Education/Training Program
DX: Z12.31 Encounter for screening mammogram for malignant neoplasm of breast (principal)
CPT/HCPCS: 77063; 77067

== ENCOUNTER 2023-08-08 16:09 | Emergency (ER) | payer MEDICARE, OTHER, SELFPAY ==
[2023-08-08] VITALS (8 sets, daily range): BP systolic 168–199; BP diastolic 75–135; PULSE 69–87; RESP 18; TEMP 36.5; O2SAT 94–97; BMI 27.3
--- NOTE | 2023-08-08 16:14 | DI.CT.S_ITS ---
PROCEDURE: CT HEAD/BRAIN WO CON INDICATIONS: Head injury TECHNIQUE: Noncontrast 4.5 mm thick angled axial sections acquired from the foramen magnum to the vertex, with coronal and sagittal reformats. For radiation dose reduction, the following was used: automated exposure control, adjustment of mA and/or kV according to patient size. COMPARISON: [facility], CT, CT CERVICAL SPINE WO CON, 08/08/2023, 16:21. [facility], CT, CT FACIAL BONES WO CON, 08/08/2023, 16:21. FINDINGS: Image quality: Excellent. CSF spaces: Basal cisterns are patent. No extra-axial fluid collections. The ventricles are symmetric in size and shape. Brain: No intracranial bleeds or masses. There is cerebral volume loss for age, with resultant ventricular and sulcal prominence. There are periventricular and deep white matter chronic small vessel ischemic changes. There is intracranial internal carotid artery atherosclerosis. Skull and face: Right forehead scalp laceration with hematoma, soft tissue gas, and bandaging material can be seen. No associated fracture is seen. Calvarium and visualized facial bones appear intact, without suspicious lesions. Sinuses: Visualized sinuses and mastoids are clear. IMPRESSION: Right scalp forehead hematoma, without an associated fracture or acute intracranial hemorrhage. No acute intracranial process is seen. Dictated by: Loy Amezcua M.D. on 08/08/2023 at 15:45 Approved by: Loy Amezcua M.D. on 08/08/2023 at 15:46
--- NOTE | 2023-08-08 16:14 | DI.CT.S_ITS ---
PROCEDURE: CT CERVICAL SPINE WO CON INDICATIONS: Head injury + neck pain TECHNIQUE: Noncontrast 3 mm thick sections acquired from the skull base to the T4 level. Sagittal and coronal reformats were then constructed. For radiation dose reduction, the following was used: automated exposure control, adjustment of mA and/or kV according to patient size. COMPARISON: [facility], CT, CT HEAD/BRAIN WO CON, 08/08/2023, 16:21. [facility], CT, CT FACIAL BONES WO CON, 08/08/2023, 16:21. FINDINGS: Image quality: This examination is somewhat limited by quantum mottle artifact. Bones: No fractures or dislocations. Visualized superior ribs are intact. Focal degenerative change is seen involving the C1-C2 interface anteriorly. There is at least moderate disc space narrowing seen at C4-C5, C5-C6, and C6-C7. Posteriorly directed endplate osteophytes are seen, which are worst at the C6-C7 level. Reversal of the normal cervical lordosis is seen, with the apex at the C4-C5 level. There is minimal anterolisthesis at C3-C4, with minimal retrolisthesis at C5-C6 and C6-C7. Soft tissues: Prevertebral soft tissues are normal in thickness. No paravertebral hematomas. No apical pneumothoraces. IMPRESSION: Negative for acute cervical spine fracture. Multiple levels of significant underlying degenerative change can be seen, which are worst inferiorly. Dictated by: Loy Amezcua M.D. on 08/08/2023 at 15:47 Approved by: Loy Amezcua M.D. on 08/08/2023 at 15:48
--- NOTE | 2023-08-08 16:14 | DI.CT.S_ITS ---
PROCEDURE: CT FACIAL BONES WO CON INDICATIONS: Trauma. Head injury, back pain TECHNIQUE: Noncontrast 2.5 mm thick axial images acquired from the mandible through the frontal sinuses, with coronal and sagittal reformatting. For radiation dose reduction, the following was used: automated exposure control, adjustment of mA and/or kV according to patient size. COMPARISON: [facility], CT, CT CERVICAL SPINE WO CON, 08/08/2023, 16:21. [facility], CT, CT HEAD/BRAIN WO [facility], 08/08/2023, 16:21. FINDINGS: Image quality: Excellent. Bones and teeth: Orbital traylor are intact. Sinus traylor show no fracture or deformity. Nasal bones and septum are intact. Visualized portions of the mandible demonstrate no fractures or subluxation. Zygomatic arches are intact. Pterygoid plates are intact. Visualized portions of the skull base and auditory canals are intact. Sinuses: Paranasal sinuses are aerated, without fluid levels, mucosal thickening, or mucoceles. Mastoid air cells are aerated. Postoperative change with bilateral antrectomy can be seen. Soft tissues: There is partial visualization of right forehead soft tissue swelling. Vascular: Visualized vascular structures appear normal in the absence of contrast. Bony vascular foramina and canals are intact. IMPRESSION: Negative for facial bone fracture. Partially visualized right forehead soft tissue swelling. Additional findings: Bilateral antrectomy Dictated by: Loy Amezcua M.D. on 08/08/2023 at 15:59 Approved by: Loy Amezuca M.D. on 08/08/2023 at 16:00
--- NOTE | 2023-08-08 16:17 | ED_ITS ---
HPI - Head Injury <Devin Grey PA-C - Last Filed: 08/08/23 17:38> General Chief complaint: Fall Stated complaint: head injury at home Time Seen by Provider: 08/08/23 16:10 History of Present Illness HPI Narrative: This is a 68-year-old female presents emergency department due to a mechanical ground level fall where she hit her head on the concrete. She is complaining primarily of a large laceration to the right side of her forehead. She reports feeling ?a little nauseous? but does denies any significant dizziness, slurred speech, vomiting, loss of consciousness. There was no loss of consciousness. She was also complaining of chin pain as she states she hit her chin. She is not taking blood thinners. No other injuries to the remaining of her body. She is complaining of mild neck pain. Related Data Home Medications Medication Instructions Recorded Confirmed tramadol 50 mg tablet 50 mg PO Q4-6H PRN 11/11/18 01/05/23 celecoxib 100 mg capsule 100 mg PO BID 04/21/19 01/05/23 acetaminophen 500 mg tablet 1,000 mg PO .QD 12/26/19 01/05/23 cetirizine 10 mg tablet (Zyrtec) 10 mg PO DAILY PRN 12/26/19 01/05/23 esomeprazole magnesium 20 mg 20 mg PO DAILY 12/26/19 01/05/23 capsule,delayed release levomefolate calcium 15 mg tablet 15 mg PO QID 12/26/19 01/05/23 (L-Methylfolate) tramadol 100 mg tablet,extended 100 mg PO BID 01/05/23 01/05/23 release 24 hr zolpidem 12.5 mg tablet,extended 6.25 mg PO BEDTIME PRN 01/05/23 01/05/23 release,multiphase Previous Rx's Medication Instructions Recorded bupropion HCl 300 mg 24 hr tablet, See Rx Instructions .Route 12/03/22 extended release .COMPLEX #90 tabs estradiol 0.025 mg/24 hr See Rx Instructions .Route 07/07/23 semiweekly transdermal patch .COMPLEX #24 patches pregabalin 75 mg capsule See Rx Instructions PO DAILY #30 07/26/23 caps Allergies Allergy/AdvReac Type Severity Reaction Status Date / Time ceftriaxone [CEFTRIAXONE] Allergy Severe drug fever Verified 07/26/23 13:25 codeine [CODEINE] AdvReac Mild n\v Verified 07/26/23 13:25 hydrocodone [From VICODIN] AdvReac Mild n/v Verified 07/26/23 13:25 Review of Systems <Devin Grey PA-C - Last Filed: 08/08/23 17:38> Review of Systems Narrative: GENERAL: Denies chills, fatigue, malaise, fever, sweats. HEENT: Reports chin pain, Denies sinus pain, ear pain, sore throat, difficulty swallowing, dizziness. RESPIRATORY: Denies dyspnea, cough, wheezing, hemoptysis, sputum. CARDIOVASCULAR: Denies chest pain, palpitations, orthopnea, edema, GASTROINTESTINAL: Denies nausea, vomiting, abdominal pain, diarrhea, constipation, melena. : Denies dysuria, frequency, incontinence, hematuria, urinary retention. MUSCULOSKELETAL: Reports neck pain, denies weakness, joint pain, or bony pain SKIN: Forehead laceration NEUROLOGIC: Denies weakness, headache, numbness, change in speech, confusion, seizures, incoordination. PSYCHIATRIC: No concerning psychosocial issues. 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) History of bladder suspension procedure (01/16/16) Surgical History History of tonsillectomy S/P total knee replacement Anesthesia History of sinus surgery History of total right knee replacement (01/16/16) Status post arthroscopy (~2003) Status post rotator cuff repair (~2010) Status post hysterectomy (~2002) Family History Father Cancer Mother History of heart disease Sister Dementia Grandmother Tuberculosis Social History Smoking Status: Never smoker Smoking Status: Never smoker alcohol intake frequency: 0-2 drinks per day Substance Use Type: does not use Exam <Devin Grey PA-C - Last Filed: 08/08/23 17:38> Narrative Exam Narrative: GENERAL: Well-developed patient, in mild distress. HEAD: Laceration as below, ecchymosis to the bottom of the chin. No surrounding facial bone tenderness. EYES: Pupils equal round and reactive. Extraocular motions intact. No scleral icterus. No injection or drainage. ENT: Nose without bleeding, purulent drainage. Throat without erythema, tonsillar hypertrophy or exudate. Airway patent. NECK: Trachea midline. Very mild tenderness to palpation to cervical paraspinal muscles. CARDIOVASCULAR: Regular rate and rhythm without murmurs, gallops, or rubs. RESPIRATORY: Clear to auscultation. Breath sounds equal bilaterally. No wheezes, rales, or rhonchi. GASTROINTESTINAL: Abdomen soft, non-tender, nondistended. EXTREMITIES: No edema or joint tenderness. BACK: Nontender without deformity or crepitance. No flank tenderness. NEURO: AOx3. SKIN: Approximately 3 cm wide laceration to the right side of the forehead with no active bleeding. Initial Vital Signs Initial Vital Signs: Vital Signs Pulse Rate 74 08/08/23 16:13 Blood Pressure 199/135 H 08/08/23 16:13 Pulse Oximetry 97 08/08/23 16:13 <Doreen Romero DO - Last Filed: 08/09/23 07:08> Initial Vital Signs Initial Vital Signs: Vital Signs Pulse Rate 74 08/08/23 16:13 Blood Pressure 199/135 H 08/08/23 16:13 Pulse Oximetry 97 08/08/23 16:13 Procedures <Devin Grey PA-C - Last Filed: 08/08/23 17:38> Laceration Repair Laceration 1: Time of procedure: 17:27 Site: other (Right forehead) Side (If applicable): right Size (cm): 3 Description: linear Depth: simple, single layer Local Anesthetic: lidocaine 1% and with epi Amount of anesthesia used (mL): 4 Pre-repair: irrigated extensively Skin layer closed with: nylon Skin layer suture size: 5-0 Number of sutures: 6 Technique: simple, interrupted Course <NITA Garcia Last Filed: 08/08/23 17:38> Orders Ordered: ED Orders 08/08/23 16:14 CT cervical spine wo con Stat CT facial bones wo con Stat CT head/brain wo con Stat Vital Signs Vital signs: Vital Signs - 8 hr 08/08/23 16:13 08/08/23 16:13 08/08/23 16:16 Temperature Pulse Rate 74 Respiratory Rate Blood Pressure 199/135 H 193/87 H Pulse Oximetry 97 Oxygen Delivery Method 08/08/23 16:16 08/08/23 16:17 08/08/23 16:49 Temperature 97.7 F Pulse Rate 76 87 69 Respiratory Rate 18 Blood Pressure 193/87 H Pulse Oximetry 97 95 97 Oxygen Delivery Method Room Air 08/08/23 16:51 08/08/23 16:51 08/08/23 17:00 Temperature Pulse Rate 70 69 Respiratory Rate Blood Pressure 170/75 H Pulse Oximetry 95 94 Oxygen Delivery Method <Doreen Romero DO - Last Filed: 08/09/23 07:08> Orders Ordered: ED Orders 08/08/23 16:14 CT cervical spine wo con Stat CT facial bones wo con Stat CT head/brain wo con Stat Vital Signs Vital signs: Vital Signs - 8 hr 08/08/23 16:13 08/08/23 16:13 08/08/23 16:16 Temperature Pulse Rate 74 Respiratory Rate Blood Pressure 199/135 H 193/87 H Pulse Oximetry 97 Oxygen Delivery Method 08/08/23 16:16 08/08/23 16:17 08/08/23 16:49 Temperature 97.7 F Pulse Rate 76 87 69 Respiratory Rate 18 Blood Pressure 193/87 H Pulse Oximetry 97 95 97 Oxygen Delivery Method Room Air 08/08/23 16:51 08/08/23 16:51 08/08/23 17:00 Temperature Pulse Rate 70 69 Respiratory Rate Blood Pressure 170/75 H Pulse Oximetry 95 94 Oxygen Delivery Method MDM - Head Injury <NITA Garcia Last Filed: 08/08/23 17:38> Imaging Data CT - cervical spine: Radiologist's Impression: [address] [address] [address] Scan Report Signed Patient: Sara Smith MR#: [id number] : 1955 Acct:[id number] Age/Sex: 68 / F Date of Service: 08/08/23 Loc: ED Accession Number: [id number] Procedure: CT cervical spine wo con Ordering Provider: Devin Grey P.A-C PROCEDURE: CT CERVICAL SPINE WO CON INDICATIONS: Head injury + neck pain TECHNIQUE: Noncontrast 3 mm thick sections acquired from the skull base to the T4 level. Sagittal and coronal reformats were then constructed. For radiation dose reduction, the following was used: automated exposure control, adjustment of mA and/or kV according to patient size. COMPARISON: [facility], CT, CT HEAD/BRAIN WO CON, 08/08/2023, 16:21. [facility], CT, CT FACIAL BONES WO CON, 08/08/2023, 16:21. FINDINGS: Image quality: This examination is somewhat limited by quantum mottle artifact. Bones: No fractures or dislocations. Visualized superior ribs are intact. Focal degenerative change is seen involving the C1-C2 interface anteriorly. There is at least moderate disc space narrowing seen at C4-C5, C5-C6, and C6-C7. Posteriorly directed endplate osteophytes are seen, which are worst at the C6-C7 level. Reversal of the normal cervical lordosis is seen, with the apex at the C4-C5 level. There is minimal anterolisthesis at C3-C4, with minimal retrolisthesis at C5-C6 and C6-C7. Soft tissues: Prevertebral soft tissues are normal in thickness. No paravertebral hematomas. No apical pneumothoraces. IMPRESSION: Negative for acute cervical spine fracture. Multiple levels of significant underlying degenerative change can be seen, which are worst inferiorly. Dictated by: Loy Amezcua M.D. on 08/08/2023 at 15:47 Approved by: Loy Amezcua M.D. on 08/08/2023 at 15:48 CT scan - head: Radiologist's Impression: [address] [address] [address] Scan Report Signed Patient: Sara Smith MR#: [id number] : 1955 Acct:[id number] Age/Sex: 68 / F Date of Service: 08/08/23 Loc: ED Accession Number: [id number] Procedure: CT head/brain wo con Ordering Provider: Devin Grey P.A-C PROCEDURE: CT HEAD/BRAIN WO CON INDICATIONS: Head injury TECHNIQUE: Noncontrast 4.5 mm thick angled axial sections acquired from the foramen magnum to the vertex, with coronal and sagittal reformats. For radiation dose reduction, the following was used: automated exposure control, adjustment of mA and/or kV according to patient size. COMPARISON: [facility], CT, CT CERVICAL SPINE WO CON, 08/08/2023, 16:21. [facility], CT, CT FACIAL BONES WO CON, 08/08/2023, 16:21. FINDINGS: Image quality: Excellent. CSF spaces: Basal cisterns are patent. No extra-axial fluid collections. The ventricles are symmetric in size and shape. Brain: No intracranial bleeds or masses. There is cerebral volume loss for age, with resultant ventricular and sulcal prominence. There are periventricular and deep white matter chronic small vessel ischemic changes. There is intracranial internal carotid artery atherosclerosis. Skull and face: Right forehead scalp laceration with hematoma, soft tissue gas, and bandaging material can be seen. No associated fracture is seen. Calvarium and visualized facial bones appear intact, without suspicious lesions. Sinuses: Visualized sinuses and mastoids are clear. IMPRESSION: Right scalp forehead hematoma, without an associated fracture or acute intracranial hemorrhage. No acute intracranial process is seen. Dictated by: Loy Amezcua M.D. on 08/08/2023 at 15:45 Approved by: Loy Amezcua M.D. on 08/08/2023 at 15:46 CT face: Radiologist's Impression: Due to technical issues unable to copy complete report into this note but impression states negative for facial bone fractures. MDM Narrative Medical decision making narrative: MDM * differential diagnosis includes but not limited to laceration, intracranial bleed, cervical fracture, cervical strain, facial bone fracture * Prior records reviewed: Patient was here 3 years ago due to sciatica like pain. History of osteoarthritis. * My lab interpretation: None obtained * My imgaing interpretation: CT negative for fractures or intracranial bleeding * Clinical Decision Rules/Scores evaluated: None * Independent discussions with: None ED Course: This is a 68-year-old female presents emergency department after a mechanical ground level fall. She would not lose conscious. CT of the head, neck, and facial bones was ordered which were all negative for any acute abnormalities. Patient did have a laceration to the forehead which was closed without complications. Recommended patient follow up with the primary care provider in 7-10 days for suture removal. Shared Decision Making: Discussed plan with patient who is comfortable with the plan. Social Considerations: None Disposition: Discharged to home Discharge Plan Departure Patient Disposition: Home Clinical Impression: Ground-level fall Activity Restrictions/Additional Instructions: Thank you for coming to the [facility] Emergency Department today. The CT of your brain showed no intracranial bleeding, there was no fractures in your facial bones, and there were no fractures in the your cervical spine. I am glad we are able to close up the wound. Please follow up with the primary care provider in 7-10 days for suture removal. I hope you feel better soon. Please follow up with your primary care provider within a week if your symptoms continue. If you do not have a primary care provider please contact the [facility] Resource line at [phone]. They will ask some questions about your medical history and help you get set up with a provider in the community. Prescriptions: No Action tramadol 50 mg tablet 50 mg PO Q4-6H PRN tramadol 100 mg tablet extended release 24 hr 100 mg PO BID zolpidem 12.5 mg tablet,ext release multiphase 6.25 mg PO BEDTIME PRN pregabalin 75 mg capsule See Rx Instructions PO DAILY Qty: 30 0RF Rx Instructions: take 1 cap in the morning, 2 at bedtime orally daily; celecoxib 100 mg capsule 100 mg PO BID bupropion HCl 300 mg tablet extended release 24 hr See Rx Instructions .ROUTE .COMPLEX Qty: 90 3RF Dose Instruction: TAKE ONE(1) TABLET BY MOUTH ONCE DAILY IN THE MORNING PT CANNOT TAKE THE 'PAR' BRAND call for appointment prior to more fills Rx Instructions: TAKE ONE(1) TABLET BY MOUTH ONCE DAILY IN THE MORNING PT CANNOT TAKE THE 'PAR' BRAND estradiol 0.025 mg/24 hr patch semiweekly See Rx Instructions .ROUTE .COMPLEX Qty: 24 0RF Dose Instruction: APPLY 1 PATCH TOPICALLY TO THE SKIN 2 TIMES A WEEK Rx Instructions: APPLY 1 PATCH TOPICALLY TO THE SKIN 2 TIMES A WEEK esomeprazole magnesium 20 mg capsule,delayed release(DR/EC) 20 mg PO DAILY cetirizine [Zyrtec] 10 mg tablet 10 mg PO DAILY PRN acetaminophen 500 mg tablet 1,000 mg PO .QD levomefolate calcium [L-Methylfolate] 15 mg tablet 15 mg PO QID Referrals: Kaya Henry MD [Primary Care Provider] - Stand Alone Forms: Patient Portal/API ED Sign-out <Doreen Romero DO - Last Filed: 08/09/23 07:08> Cosign ED Attending Coseusebiaature Attestation: I was immediately available in the department for consultation. Documentation has been reviewed.
== END 2023-08-08 17:47 | disposition home or self-care (01) ==
PROVIDERS: Emergency Provider Physician Assistant Medical; PCP Student in an Organized Health Care Education/Training Program
DX: S01.81XA Laceration without foreign body of other part of head, initial encounter (principal); M54.2 Cervicalgia; W18.30XA Fall on same level, unspecified, initial encounter
CPT/HCPCS: 12013; 70450; 70486; 72125; 99284

== ENCOUNTER 2023-08-25 10:41 | Emergency (ER) | payer MEDICARE, OTHER, SELFPAY ==
[2023-08-25 10:48] VITALS: BP 163/74; PULSE 73; RESP 16; TEMP 36.5; O2SAT 99; BMI 27.0
--- NOTE | 2023-08-25 10:52 | DI.RAD.S_ITS ---
PROCEDURE: XR KNEE LT 3V INDICATIONS: pain/ instability/recent fall/ calf pain TECHNIQUE: 3 views of the knee were acquired. COMPARISON: None. FINDINGS: Bones: Tricompartmental degenerative changes of the left knee with medial joint space narrowing. There are tricompartmental osteophytes. Severe joint space narrowing of the lateral facet. Soft tissues: No joint effusion. No suspicious soft tissue calcifications. IMPRESSION: Tricompartmental degenerative changes consistent with severe osteoarthritis. Dictated by: Luis Antonio Amanda M.D. on 08/25/2023 at 11:52 Approved by: Luis Antonio Amanda M.D. on 08/25/2023 at 11:56
--- NOTE | 2023-08-25 10:52 | DI.US.S_ITS ---
PROCEDURE: US PERIPH VENOUS LOW EXTREM LT INDICATIONS: LEFT CALF PAIN TECHNIQUE: Real-time imaging, as well as color and pulse Doppler interrogation, were performed of the lower extremity deep veins from the inguinal ligament to the popliteal fossa, with documentation of the visualized calf veins. COMPARISON: None. FINDINGS: The common femoral, femoral, popliteal, and the visualized calf veins are normally compressible, and free of intraluminal thrombus. Color and pulse Doppler demonstrate normal phasic intraluminal flow. There is normal augmentation response to distal compression maneuver. IMPRESSION: No findings of lower extremity deep venous thrombosis. Dictated by: Luis Antonio Amanda M.D. on 08/25/2023 at 11:35 Approved by: Luis Antonio Amanda M.D. on 08/25/2023 at 11:35
--- NOTE | 2023-08-25 12:02 | ED.EXTPRO ---
HPI - Extremity Problem <Alley Thakur PA-C - Last Filed: 08/25/23 15:41> General Chief complaint: Extremity Problem,Nontraumatic Stated complaint: sent by [facility] DVT lower LT leg Time Seen by Provider: 08/25/23 11:06 Source: patient Mode of arrival: Ambulatory History of Present Illness HPI Narrative: 68-year-old woman with chronic left knee osteoarthritis surgery in 1 month presents with concern for left pain and possible DVT. Patient states that she has chronic left knee pain secondary to her osteoarthritis but recently has been dealing with left calf pain more on the inside of the calf and upper calf she says it is worse with moving her ankle and with walking. She says it feels like a deep pain but has difficulty describing the nature of the pain. She denies numbness or tingling of the extremity, has not noted swelling, redness or heat. She does not use any walking aids. She denies any other complaints or concerns. Related Data Home Medications Medication Instructions Recorded Confirmed tramadol 50 mg tablet 50 mg PO Q4-6H PRN 11/11/18 01/05/23 celecoxib 100 mg capsule 100 mg PO BID 04/21/19 01/05/23 acetaminophen 500 mg tablet 1,000 mg PO .QD 12/26/19 01/05/23 cetirizine 10 mg tablet (Zyrtec) 10 mg PO DAILY PRN 12/26/19 01/05/23 esomeprazole magnesium 20 mg 20 mg PO DAILY 12/26/19 01/05/23 capsule,delayed release levomefolate calcium 15 mg tablet 15 mg PO QID 12/26/19 01/05/23 (L-Methylfolate) tramadol 100 mg tablet,extended 100 mg PO BID 01/05/23 01/05/23 release 24 hr zolpidem 12.5 mg tablet,extended 6.25 mg PO BEDTIME PRN 01/05/23 01/05/23 release,multiphase Previous Rx's Medication Instructions Recorded bupropion HCl 300 mg 24 hr tablet, See Rx Instructions .Route 12/03/22 extended release .COMPLEX #90 tabs estradiol 0.025 mg/24 hr See Rx Instructions .Route 07/07/23 semiweekly transdermal patch .COMPLEX #24 patches pregabalin 75 mg capsule See Rx Instructions PO DAILY #30 07/26/23 caps Allergies Allergy/AdvReac Type Severity Reaction Status Date / Time ceftriaxone [CEFTRIAXONE] Allergy Severe drug fever Verified 07/26/23 13:25 codeine [CODEINE] AdvReac Mild n\v Verified 07/26/23 13:25 hydrocodone [From VICODIN] AdvReac Mild n/v Verified 07/26/23 13:25 Review of Systems <Alley Thakur PA-C - Last Filed: 08/25/23 15:41> Review of Systems Narrative: See HPI Patient History <Alley Thakur PA-C - Last Filed: 08/25/23 15:41> Medical History SVT (supraventricular tachycardia) Mumps Measles Fecal incontinence (~2009) Osteoarthritis (~2007) Sleep apnea (~2009) Seasonal allergies Depression (~2007) Migraines Headache Cervical spine disease Recurrent sinusitis Urinary retention (~2002) History of urinary incontinence (~1985) Polycystic kidney disease GERD (gastroesophageal reflux disease) (~2009) 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) History of bladder suspension procedure (01/16/16) Surgical History History of tonsillectomy S/P total knee replacement Anesthesia History of sinus surgery History of total right knee replacement (01/16/16) Status post arthroscopy (~2003) Status post rotator cuff repair (~2010) Status post hysterectomy (~2002) Family History Father Cancer Mother History of heart disease Sister Dementia Grandmother Tuberculosis Social History Smoking Status: Never smoker Smoking Status: Never smoker alcohol intake frequency: 0-2 drinks per day Substance Use Type: does not use Exam <Alley Thakur PA-C - Last Filed: 08/25/23 15:41> Narrative Exam Narrative: GENERAL: 68 year old patient appears stated age. Well-developed patient, in mild distress. HEAD: Atraumatic. Normocephalic. EYES: Pupils equal round and reactive. Extraocular motions intact. No scleral icterus. No injection or drainage. ENT: Nose without bleeding, purulent drainage. NECK: Trachea midline. CARDIOVASCULAR: Regular rate and rhythm without murmurs, gallops, or rubs. RESPIRATORY: Clear to auscultation. Breath sounds equal bilaterally. No wheezes, rales, or rhonchi. EXTREMITIES: Left medial superior aspect of the calf is mildly tender with palpation and muscles are tight. There is no appreciable swelling as compared to the right and no erythema or heat present. Range of motion of the ankle and knee are intact. No popliteal mass or tenderness. No edema or joint tenderness. NEURO: AOx3. SKIN: No rash or erythema of visible areas Initial Vital Signs Initial Vital Signs: Vital Signs Temperature 97.7 F 08/25/23 10:48 Pulse Rate 73 08/25/23 10:48 Respiratory Rate 16 08/25/23 10:48 Blood Pressure 163/74 H 08/25/23 10:48 Pulse Oximetry 99 08/25/23 10:48 Oxygen Delivery Method Room Air 08/25/23 10:48 <Doreen Macedo MD - Last Filed: 08/25/23 15:39> Initial Vital Signs Initial Vital Signs: Vital Signs Temperature 97.7 F 08/25/23 10:48 Pulse Rate 73 08/25/23 10:48 Respiratory Rate 16 08/25/23 10:48 Blood Pressure 163/74 H 08/25/23 10:48 Pulse Oximetry 99 08/25/23 10:48 Oxygen Delivery Method Room Air 08/25/23 10:48 Course <Alley Thakur PA-C - Last Filed: 08/25/23 15:41> Orders Ordered: ED Orders 08/25/23 10:52 US periph venous low extrem lt Stat XR knee LT 3V Stat Vital Signs Vital signs: Vital Signs - 8 hr 08/25/23 10:48 08/25/23 12:17 Temperature 97.7 F 98.5 F Pulse Rate 73 73 Respiratory Rate 16 18 Blood Pressure 163/74 H 137/63 Pulse Oximetry 99 99 Oxygen Delivery Method Room Air Room Air <Doreen Macedo MD - Last Filed: 08/25/23 15:39> Orders Ordered: ED Orders 08/25/23 10:52 US periph venous low extrem lt Stat XR knee LT 3V Stat Vital Signs Vital signs: Vital Signs - 8 hr 08/25/23 10:48 08/25/23 12:17 Temperature 97.7 F 98.5 F Pulse Rate 73 73 Respiratory Rate 16 18 Blood Pressure 163/74 H 137/63 Pulse Oximetry 99 99 Oxygen Delivery Method Room Air Room Air MDM - Extremity (Nontraumatic) <Alley Thakur PA-C - Last Filed: 08/25/23 15:41> Differential Diagnosis Differential diagnosis: Likely deep vein thrombosis of lower extremity and other (Muscle strain, muscle spasm, acute on chronic knee pain, osteoarthritis) Imaging Data US - DVT: My Impression: Agree with Radiology interpretation Radiologist's Impression: [address] [address] Ultrasound Report Signed Patient: Sara Smith MR#: [id number] : 1955 Acct:[id number] Age/Sex: 68 / F Date of Service: 08/25/23 Loc: ED Accession Number: [id number] Procedure: US periph venous low extrem lt Ordering Provider: Doreen Macedo MD PROCEDURE: US PERIPH VENOUS LOW EXTREM LT INDICATIONS: LEFT CALF PAIN TECHNIQUE: Real-time imaging, as well as color and pulse Doppler interrogation, were performed of the lower extremity deep veins from the inguinal ligament to the popliteal fossa, with documentation of the visualized calf veins. COMPARISON: None. FINDINGS: The common femoral, femoral, popliteal, and the visualized calf veins are normally compressible, and free of intraluminal thrombus. Color and pulse Doppler demonstrate normal phasic intraluminal flow. There is normal augmentation response to distal compression maneuver. IMPRESSION: No findings of lower extremity deep venous thrombosis. Dictated by: Luis Antonio Amanda M.D. on 08/25/2023 at 11:35 Approved by: Luis Antonio Amanda M.D. on 08/25/2023 at 11:35 Extremity x-ray #1: My Impression: Agree with Radiology interpretation Radiologist's Impression: [address] [address] XRay Report Signed Patient: Sara Smith MR#: [id number] : 1955 Acct:[id number] Age/Sex: 68 / F Date of Service: 08/25/23 Loc: ED Accession Number: [id number] Procedure: XR knee LT 3V Ordering Provider: Doreen Macedo MD PROCEDURE: XR KNEE LT 3V INDICATIONS: pain/ instability/recent fall/ calf pain TECHNIQUE: 3 views of the knee were acquired. COMPARISON: None. FINDINGS: Bones: Tricompartmental degenerative changes of the left knee with medial joint space narrowing. There are tricompartmental osteophytes. Severe joint space narrowing of the lateral facet. Soft tissues: No joint effusion. No suspicious soft tissue calcifications. IMPRESSION: Tricompartmental degenerative changes consistent with severe osteoarthritis. Dictated by: Luis Antonio Amanda M.D. on 08/25/2023 at 11:52 Approved by: Luis Antonio Amanda M.D. on 08/25/2023 at 11:56 US DVT overread: Radiologist's Impression: [place] [address] Ultrasound Report Addendum Patient: Sara Smith MR#: [id number] : 1955 Acct:[id number] Age/Sex: 68 / F Date of Service: 08/25/23 Loc: ED Accession Number: [id number] Procedure: US periph venous low extrem lt Ordering Provider: Doreen Macedo MD ADDENDUMThis report includes an Addendum and supersedes previous reports for this exam. PROCEDURE: US PERIPH VENOUS LOW EXTREM LT INDICATIONS: LEFT CALF PAIN TECHNIQUE: Real-time imaging, as well as color and pulse Doppler interrogation, were performed of the lower extremity deep veins from the inguinal ligament to the popliteal fossa, with documentation of the visualized calf veins. COMPARISON: None. FINDINGS: The common femoral, femoral, popliteal, and the visualized calf veins are normally compressible, and free of intraluminal thrombus. Color and pulse Doppler demonstrate normal phasic intraluminal flow. There is normal augmentation response to distal compression maneuver. IMPRESSION: No findings of lower extremity deep venous thrombosis. Dictated by: Luis Antonio Amanda M.D. on 08/25/2023 at 11:35 Approved by: Luis Antonio Amanda M.D. 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 These findings were discussed with Dr. Macedo at 14:38 on 08/25/2023. Dictated by: Luis Antonio Amanda M.D. on 08/25/2023 at 14:35 Approved by: Luis Antonio Amanda M.D. on 08/25/2023 at 14:38 Addendum Dictated By: Luis Antonio Amanda MD Addendum Signed By: Addendum Cosigned By: DD/ /16/1437 TD/TT: 08/25/2311/16/1437 PROCEDURE: US PERIPH VENOUS LOW EXTREM LT INDICATIONS: LEFT CALF PAIN TECHNIQUE: Real-time imaging, as well as color and pulse Doppler interrogation, were performed of the lower extremity deep veins from the inguinal ligament to the popliteal fossa, with documentation of the visualized calf veins. COMPARISON: None. FINDINGS: The common femoral, femoral, popliteal, and the visualized calf veins are normally compressible, and free of intraluminal thrombus. Color and pulse Doppler demonstrate normal phasic intraluminal flow. There is normal augmentation response to distal compression maneuver. IMPRESSION: No findings of lower extremity deep venous thrombosis. Dictated by: Luis Antonio Amanda M.D. on 08/25/2023 at 11:35 Approved by: Luis Antonio Amanda M.D. on 08/25/2023 at 11:35 Treatment and disposition Shared decision making:: Shared decision-making was used to determining plan for evaluation in the emergency department and plan for outpatient follow-up. MDM Narrative Medical decision making narrative: 68-year-old woman with chronic osteoarthritis scheduled to have left knee surgery replacement in 1 month presents with concern for left calf pain and possible DVT. Knee x-ray as well as DVT lower extremity left ultrasound are ordered. Ultrasound returns negative for DVT. X-ray is positive for severe osteoarthritis which is chronic and known to patient. Suspect that the patient has tight and strained muscles 2nd to a slightly antalgic gait due to her chronic left knee pain. Discussed this with her and encouraged her to consider using a cane until she has her surgery to help give her some support so she is not putting as much strain on her lower extremity on the left. Also advised she can continue with [id number] pain medicines and try gentle stretching and heat. She is already enrolled in physical therapy but states this has so far made her calf pain worse. Advised regarding return precautions, follow-up plan discussed, all questions answered. After discharge radiology called regarding an over-read and reported to attending physician Dr. Macedo that patient had findings consistent with a probable ruptured Jones's cyst visible on the ultrasound. Patient called and advised of these findings, pt acknowledged she has a known bakers cyst and had noticed a change in how it was feeling since the pain worsened. Pt again advised to follow up with her orthopedist. All questions answered. Discharge Plan Departure Patient Disposition: Home Clinical Impression: Strain of left calf muscle, Osteoarthritis, chronic Activity Restrictions/Additional Instructions: *You have been diagnosed with [muscle strain] *What to do: *Please continue to take your regular medications as directed. [ ] New medication prescriptions sent to your pharmacy: [ ] [ ] New medication written as a paper prescription [X ] No new medications given *Please follow up with your primary care provider in 2-3 days, call for an appointment. Let them know you were seen in the Emergency Department and that we ask that you be seen in follow up. We will electronically transmit a record of today's note if your PCP is in our system. You came in today with concern for a possible blood clot as you have been having some calf pain on the left. Thankfully your ultrasound today did not show any evidence of a clot. I suspect that your calf pain is due to your muscles being strained due to the way he has been walking because of your left knee osteoarthritis. Hopefully this will improve after you have your surgery next month. You may want to consider walking with a cane in the interim as your knee pain definitely seems to affect how you walk and is probably putting extra strain on your muscles tendons and ligaments in your leg. You can try heat and ice and gentle stretching to see if this improves your symptoms as well. *If you do not have a primary care provider please contact the [facility] Resource line at [phone]. They will ask some questions about your medical history and help get you set up with a doctor in the community. *Return to Emergency Department if you should have any new, worsening or concerning symptoms, such as [fever greater than 101 F, shaking chills, worsening pain, persistent vomiting or other bothersome symptoms] Prescriptions: No Action tramadol 50 mg tablet 50 mg PO Q4-6H PRN tramadol 100 mg tablet extended release 24 hr 100 mg PO BID zolpidem 12.5 mg tablet,ext release multiphase 6.25 mg PO BEDTIME PRN pregabalin 75 mg capsule See Rx Instructions PO DAILY Qty: 30 0RF Rx Instructions: take 1 cap in the morning, 2 at bedtime orally daily; celecoxib 100 mg capsule 100 mg PO BID bupropion HCl 300 mg tablet extended release 24 hr See Rx Instructions .ROUTE .COMPLEX Qty: 90 3RF Dose Instruction: TAKE ONE(1) TABLET BY MOUTH ONCE DAILY IN THE MORNING PT CANNOT TAKE THE 'PAR' BRAND call for appointment prior to more fills Rx Instructions: TAKE ONE(1) TABLET BY MOUTH ONCE DAILY IN THE MORNING PT CANNOT TAKE THE 'PAR' BRAND estradiol 0.025 mg/24 hr patch semiweekly See Rx Instructions .ROUTE .COMPLEX Qty: 24 0RF Dose Instruction: APPLY 1 PATCH TOPICALLY TO THE SKIN 2 TIMES A WEEK Rx Instructions: APPLY 1 PATCH TOPICALLY TO THE SKIN 2 TIMES A WEEK esomeprazole magnesium 20 mg capsule,delayed release(DR/EC) 20 mg PO DAILY cetirizine [Zyrtec] 10 mg tablet 10 mg PO DAILY PRN acetaminophen 500 mg tablet 1,000 mg PO .QD levomefolate calcium [L-Methylfolate] 15 mg tablet 15 mg PO QID Referrals: Kaya Henry MD [Primary Care Provider] - Stand Alone Forms: Patient Portal/API ED Sign-out <Doreen Macedo MD - Last Filed: 08/25/23 15:39> Cosign ED Attending Cosignature Attestation: I did not see this patient. I was available all times for consultation.
[2023-08-25 12:17] VITALS: BP 137/63; PULSE 73; RESP 18; TEMP 36.9; O2SAT 99
== END 2023-08-25 12:30 | disposition home or self-care (01) ==
PROVIDERS: Emergency Provider Student in an Organized Health Care Education/Training Program; PCP Student in an Organized Health Care Education/Training Program
DX: S86.912A Strain of unspecified muscle(s) and tendon(s) at lower leg level, left leg, initial encounter (principal); M17.12 Unilateral primary osteoarthritis, left knee
CPT/HCPCS: 73562; 93971; 99281; 99283

== ENCOUNTER → 2024-08-15 13:08 | Outpatient (CLI) | payer MEDICARE, OTHER, SELFPAY ==
--- NOTE | 2024-08-15 13:10 | DI.MG.S_ITS ---
BILATERAL DIGITAL SCREENING MAMMOGRAM 3D/2D WITH CAD: 08/15/2024 CLINICAL: Routine screening. Comparison is made to exams dated: 07/26/2023 mammogram, 07/14/2022 mammogram, and 05/14/2021 mammogram - [facility]. There are scattered areas of fibroglandular density (category b / 25%-50% glandular tissue). Current study was also evaluated with a Computer Aided Detection (CAD) system. There is a focal asymmetry in the right breast at 6 o'clock in the retroareolar region. No other significant masses, calcifications, or other findings are seen in either breast. IMPRESSION: INCOMPLETE: NEED ADDITIONAL IMAGING EVALUATION The focal asymmetry in the right breast is indeterminate. A diagnostic mammogram and ultrasound is recommended. Based on the Tyrer Cuzick model (a risk assessment model) the patient's lifetime risk is 5.1% and her 10 year risk is 3.3%. According to the ACR, ACS, and NCCN guidelines, an annual breast MRI exam along with mammogram is recommended if the patient's lifetime risk is 20% or greater. This exam was interpreted at Station ID: [id number]. NOTE: For mammograms, a report in lay terms will be sent to the patient. Approximately 15% of breast malignancies will not be visualized mammographically. In the management of a palpable breast mass, a negative mammogram must not discourage biopsy of a clinically suspicious lesion. Electronically Signed By: Christina Edmonds M.D., Ph.D. eb/:08/16/2024 01:42:47 letter sent: Additional Imaging Needed ACR BI-RADS Category 0: Incomplete: Need Additional Imaging Evaluation
== END ==
LOC: MAMMO 13:09
PROVIDERS: PCP Student in an Organized Health Care Education/Training Program; Referring Provider Student in an Organized Health Care Education/Training Program; Visit Provider Student in an Organized Health Care Education/Training Program
DX: Z12.31 Encounter for screening mammogram for malignant neoplasm of breast (principal)
CPT/HCPCS: 77063; 77067

== ENCOUNTER → 2024-09-05 13:32 | Outpatient (CLI) | payer MEDICARE, OTHER, SELFPAY ==
--- NOTE | 2024-09-05 | DI.MG.S_ITS ---
UNILATERAL RIGHT DIGITAL DIAGNOSTIC MAMMOGRAM 3D/2D WITH ADDITIONAL VIEWS: 09/05/2024 CLINICAL: Additional evaluation requested from prior study. Comparison is made to exams dated: 08/15/2024 mammogram, 07/26/2023 mammogram, and 07/14/2022 mammogram - [facility]. There are scattered areas of fibroglandular density (category b / 25%-50% glandular tissue). There is a new 1.9 cm round high density asymmetry with a microlobulated margin in the right breast at 6 o'clock in the retroareolar region. This is seen in additional views. No other significant masses or calcifications are seen in the breast. IMPRESSION: INCOMPLETE: NEED ADDITIONAL IMAGING EVALUATION The new 1.9 cm asymmetry in the right breast persists with additional views but remains indeterminate. An ultrasound is recommended. This was performed immediately following this exam. Based on the Tyrer Cuzick model (a risk assessment model) the patient's lifetime risk is 5.1% and her 10 year risk is 3.3%. According to the ACR, ACS, and NCCN guidelines, an annual breast MRI exam along with mammogram is recommended if the patient's lifetime risk is 20% or greater. This exam was interpreted at Station ID: [id number]. NOTE: For mammograms, a report in lay terms will be sent to the patient. Approximately 15% of breast malignancies will not be visualized mammographically. In the management of a palpable breast mass, a negative mammogram must not discourage biopsy of a clinically suspicious lesion. Electronically Signed By: Lizz zeng/:09/05/2024 14:01:24 letter sent: Additional Imaging Needed ACR BI-RADS Category 0: Incomplete: Need Additional Imaging Evaluation
--- NOTE | 2024-09-05 13:35 | DI.US.S_ITS ---
ULTRASOUND OF RIGHT BREAST AND AXILLA: 09/05/2024 CLINICAL: Patient returns today to evaluate a focal asymmetry in the right breast. Comparison is made to exams dated: 09/05/2024 mammogram, 08/15/2024 mammogram, 07/26/2023 mammogram, 07/14/2022 mammogram, 05/14/2021 mammogram - [facility], and 02/14/2019 mammogram - outside location. Color flow ultrasound of the right breast axilla was performed. Real-time ultrasonography of right breast was performed with computer guidance to assure complete coverage of the breast tissue and to provide a uniform data set. Images were transferred to a viewing station for 3-D rendering. There is a 3.2 cm x 1.8 cm x 1.2 cm irregular mass with a circumscribed and microlobulated margin in the right breast at 7 o'clock anterior depth. This irregular mass is hypoechoic with posterior acoustic enhancement. This correlates as palpated and with mammography findings. There is associated skin involvement. Color flow imaging demonstrates that there is increased vascularity. No significant abnormalities were seen sonographically in the right axilla. IMPRESSION: SUSPICIOUS The 3.2 cm x 1.8 cm x 1.2 cm irregular mass in the right breast corresponds to the mammogram finding, is suspicious of malignancy. An ultrasound guided biopsy is recommended. Findings and recommendations were discussed with the patient by telephone at time of exam. This exam was interpreted at Station ID: [id number]. Electronically Signed By: Lizz zeng/:09/05/2024 15:08:39 letter sent: Biopsy Required ACR BI-RADS Category 4: Suspicious
== END ==
LOC: MAMMO 13:34
PROVIDERS: PCP Student in an Organized Health Care Education/Training Program; Referring Provider Student in an Organized Health Care Education/Training Program; Visit Provider Student in an Organized Health Care Education/Training Program
DX: N63.13 Unspecified lump in the right breast, lower outer quadrant (principal); R92.8 Other abnormal and inconclusive findings on diagnostic imaging of breast; R92.321 Mammographic fibroglandular density, right breast
CPT/HCPCS: 76642; 77065; G0279

== ENCOUNTER → 2024-09-25 13:43 | Outpatient (CLI) | payer MEDICARE, OTHER, SELFPAY ==
--- NOTE | 2024-09-25 | PATH_ITS ---
[facility] Accession Number: [id number] No. of containers..01 Tissue . 01 Material submitted: . breast - RIGHT BREAST 7:00 3CMFN MASS . 01 Diagnosis: RIGHT BREAST MASS, 7 O'CLOCK, 3 CM FROM NIPPLE, NEEDLE CORE BIOPSIES: Invasive ductal carcinoma; see Case Summary. . CASE SUMMARY, INVASIVE CARCINOMA OF THE BREAST, BIOPSY Specimen Procedure: Needle biopsy. Specimen laterality: Right. Tumor Tumor site: 7 o'clock. Distance from nipple in centimeters: 3 cm. Histologic type: Invasive carcinoma of no special type (ductal). Histologic grade Jesse score Tubular differentiation: Score 3. Nuclear pleomorphism: Score 3. Mitotic rate: Score 2. Overall grade: Grade 3. Largest invasive focus in this limited biopsy sample: 10 mm. Ductal carcinoma in situ: Not identified. Lymphovascular invasion: Not identified. Microcalcifications: Not identified. Special studies Predictive marker immunohistochemical studies are performed on block A1 with the invasive carcinoma showing the following results: . Estrogen receptor (SP1): Positive (90%, average intensity strong). Progesterone receptor (1E2): Positive (30%, average intensity strong). Her2 (4B5): Equivocal (2+). . Internal controls for ER and MT are positive. Cold ischemic time is not provided. The scoring criteria for breast biomarkers by immunohistochemistry is based on the ASCO/CAP guidelines (Phi AC et al, J Clin Oncol: 2017May 03;36(20):4240-7357 and Yang BILLINGS et al, Arch Pathol Lab Med: 2009;134(6):907-22). Deparaffinized sections of formalin fixed tissue (along with appropriate positive controls) are incubated with the above antibody(s). Using the automated [place] stainer, tissue is incubated with the designated antibody which is then localized by a non-biotin, dual polymer detection system. The external controls are reviewed for appropriate reactivity and found to be adequate. Results on the target cell population are indicated above. These tests have not been validated on decalcified tissue. MRV 09/27/2024 1546 Local . 01 Comment: An HER2 immunohistochemical stain is equivocal (2+) for overexpression. HER2 FISH will be performed, and results issued in an addendum. . As part of routine senior supplier quality engineer, Dr. Horn has reviewed this case and agrees with the diagnosis of invasive ductal carcinoma and equivocal HER2 overexpression. The finding of carcinoma was reported to Dr. Henry via SH[facility] [place] by Dr. Pike on 09/26/2024 at 4:55 p.m. . 01 Electronically signed: . Robert Pike MD, PhD, Pathologist NPI- [id number] . 01 Gross description: . Received is one formalin-filled container labeled with the patient's name and designated right breast 7 o'clock 3 cm FN mass, are five yellow-wesley to wesley-bose cylindrical shaped portions of tissue which range in length from 0.7 to 1.2 cm and average diameter of 0.2 to 0.3 cm. Entirely submitted in cassette A1. . Possible collection date and time per requistion 09/25/2024 at 1454 hours. Total fixation time approximately 13 hours. (DC:[id number]) /FELISHA 09/26/2024 0451 Local . 01 Microscopic: . Sections are of breast parenchyma infiltrated by proliferation of epithelioid cells in nested and linear profiles, consistent with carcinoma. The malignant cells are strongly and diffusely positive for e-cadherin immunoreactivity, consistent with ductal carcinoma. Estrogen receptor and progesterone receptor immunostains are positive with 90%, and 30% of malignant cells staining, respectively. A HER2 stain is equivocal (2+) for HER2 overexpression. All control stains show appropriate reactivity. . * This test was developed and the performance characteristics were validated by [employer]. It has not been cleared or approved by the U.S. Food and Drug Administration. . 01 Pathologist provided ICD-10: C50.511 . 01 CPT . 653769, Y04912, I63663 Specimen Comment: A courtesy copy of this report has been sent to [facility] Pathology Performed at: 01 [facility] [place] [address] [address] [address], [place], [place] [id number] MD Jayden Rojas MD Phone: [phone]
--- NOTE | 2024-09-25 | DI.US.S_ITS ---
ULTRASOUND GUIDED BIOPSY RIGHT BREAST WITH MARKING DEVICE INSERTED AND POST DIGITAL MAMMOGRAPHIC IMAGIN09/25/2024 CLINICAL: Right breast mass. PATIENT CONSENT: Risks (minor bleeding, infection, vasovagal reaction and repeat procedure), benefits and alternatives were explained to the patient and written informed consent was obtained. Correlation is made to exams dated: 09/25/2024 mammogram, 09/05/2024 ultrasound, 09/05/2024 mammogram, 08/15/2024 mammogram, 07/26/2023 mammogram, and 07/14/2022 mammogram - [facility]. An ultrasound guided biopsy using real-time ultrasound was performed for the concerning circumscribed microlobulated mass located in the right breast at 7 o'clock in the retroareolar region. This was described on the previous ultrasound report. The skin was prepped in the usual manner. Local anesthetic was administered to the access site. A skin rylan was made in the breast. A 16 gauge biopsy needle was placed adjacent to the abnormality under ultrasound guidance. Once the needle was documented to be in the correct location, five specimens were obtained using an [employer] automated firing device. A Vision clip was inserted into the biopsy cavity. A skin closure strip and a sterile dressing were applied to the access site. Post procedure digital mammographic imaging demonstrates the location device at the targeted area. The specimens were sent to the laboratory for pathological analysis. Procedure performed by Dr. Neymar Mayberry. IMPRESSION: ULTRASOUND GUIDED BIOPSY MALIGNANT Ultrasound guided biopsy of the mass in the right breast at 7 o'clock in the retroareolar region was successful. Pathology indicates malignant invasive ductal carcinoma (ID). Pathology results are concordant with imaging findings. A surgical/oncologic consultation is recommended. Results and recommendations will be communicated to the ordering provider's office. This exam was interpreted at Station ID: [id number]. Lizz zeng/:09/28/2024 12:01:49
--- NOTE | 2024-09-25 | DI.MG.S_ITS ---
UNILATERAL RIGHT DIGITAL DIAGNOSTIC MAMMOGRAM 3D/2D POST-PROCEDURE IMAGING FOR MARKER PLACEMENT: 09/25/2024 CLINICAL: Post right breast ultrasound biopsy, clip placement imaging. Comparison is made to exams dated: 09/05/2024 mammogram, 08/15/2024 mammogram, and 07/26/2023 mammogram - [facility]. There are scattered areas of fibroglandular density (category b / 25%-50% glandular tissue). There is a marker clip in the appropriate position in the right breast central to the nipple in the retroareolar region. IMPRESSION: POST PROCEDURE MAMMOGRAM FOR MARKER PLACEMENT There was a successful marker clip placement in the right breast central to the nipple in the retroareolar region. This exam was interpreted at Station ID: [id number]. NOTE: For mammograms, a report in lay terms will be sent to the patient. Approximately 15% of breast malignancies will not be visualized mammographically. In the management of a palpable breast mass, a negative mammogram must not discourage biopsy of a clinically suspicious lesion. Electronically Signed By: Lizz zeng/rose marie:09/28/2024 11:13:41 ACR BI-RADS Category Post-Procedure Mammogram for Marker Placement
== END ==
PROVIDERS: PCP Student in an Organized Health Care Education/Training Program; Referring Provider Student in an Organized Health Care Education/Training Program; Visit Provider Student in an Organized Health Care Education/Training Program
DX: R92.8 Other abnormal and inconclusive findings on diagnostic imaging of breast; C50.511 Malignant neoplasm of lower-outer quadrant of right female breast; Z17.0 Estrogen receptor positive status [ER+]
CPT/HCPCS: 19083; 77065

== ENCOUNTER → 2025-04-20 14:14 | Outpatient (CLI) | payer MEDICARE, OTHER, SELFPAY ==
--- NOTE | 2025-04-20 14:17 | DI.RAD.S_ITS ---
PROCEDURE: XR DEXA AXIAL SKELETON INDICATIONS: AROMATASE INHIBITOR USE/ESTROGEN RECEPTOR POSI COMPARISON: [facility], , XR DEXA AXIAL SKELETON, 05/14/2021, 14:52. FINDINGS: Lumbar Spine (L2 and L3 only): Bone mineral density 1.670 g/cm2, T score 5.6, previously 6.3. Left Femoral Neck: Bone mineral density 1.261 g/cm2, T score 3.7. Left Hip: Bone mineral density 1.277 g/cm2, T score 2.7, previously 3.4. Fracture Risk Calculation (when applicable): Not reported due to normal bone mineralization. (T score greater or equal to -1.0 to: NORMAL) (T score from -1.1 to -2.4: OSTEOPENIA) (T score less than or equal to -2.5: OSTEOPOROSIS) IMPRESSION: Normal bone mineralization Follow-up guidelines as follows: Osteoporosis: Consider a repeat DEXA and Vertebral Fracture Assessment (VFA) exam in 2 years or sooner if medically necessary, to reassess this patient's status. Osteopenia: Consider a repeat DEXA in 2-3 years to reassess this patient's status, or if there is a new clinical indication. Normal: Consider a repeat DEXA in 5 years or sooner, or if there is a new clinical indication. All treatment decisions require clinical judgment and consideration of individual patient factors, including patient preferences, comorbidities, previous drug use, risk factors not captured in the FRAX model (e.g., frailty, falls, vitamin D deficiency, increased bone turnover, interval significant decline in bone density ) and possible under- or over-estimation of fracture risk by FRAX. In addition, the NOF Guide recommends that FDA-approved medical therapies be considered in postmenopausal women and men age >= 50 years with a: * Hip or vertebral (clinical or morphometric) fracture * T-score of <=-2.5 at the spine or hip * Ten-year fracture probability by FRAX of >= 3% for hip fracture or >=20% for major osteoporotic fracture. Dictated by: Harshil Lema M.D. on 04/20/2025 at 16:34 Approved by: Harshil Lema M.D. on 04/20/2025 at 16:35
== END ==
PROVIDERS: PCP Student in an Organized Health Care Education/Training Program; Referring Provider Internal Medicine Hematology & Oncology; Visit Provider Internal Medicine Hematology & Oncology
DX: C50.111 Malignant neoplasm of central portion of right female breast (principal); Z17.0 Estrogen receptor positive status [ER+]; Z79.811 Long term (current) use of aromatase inhibitors
CPT/HCPCS: 77080

== ENCOUNTER → 2025-07-13 09:23 | Outpatient (CLI) | payer MEDICARE, OTHER, SELFPAY ==
[2025-07-13 10:20] LABS: Influenza A - CEPHEID Flu A NEGATIVE (NEGATIVE); Influenza B - CEPHEID Flu B NEGATIVE (NEGATIVE)
[2025-07-13 10:35] LABS: COVID-19 CEPHEID 4-PLEX PCR Negative (Negative)
== END ==
LOC: LAB 09:23
PROVIDERS: PCP Student in an Organized Health Care Education/Training Program; Visit Provider Nurse Practitioner Family
DX: R05.1 Acute cough (principal)
CPT/HCPCS: 87637

== ENCOUNTER → 2025-07-13 09:47 | Outpatient (CLI) | payer MEDICARE, OTHER, SELFPAY ==
--- NOTE | 2025-07-13 09:49 | DI.RAD.S_ITS ---
PROCEDURE: XR CHEST 2V INDICATIONS: r/o PNA cough x 3 weeks TECHNIQUE: 2 views of the chest were acquired. COMPARISON: [facility], CR, XR CHEST 2V, 12/14/2022, 10:13. FINDINGS: Surgical changes and devices: None. Lungs and pleura: Lungs are clear. No pleural effusions or pneumothorax. Mediastinum: Mediastinal contours are normal. Heart size is normal. Bones and chest wall: No suspicious bony abnormalities. Soft tissues appear unremarkable. IMPRESSION: No acute cardiopulmonary abnormality is seen. Dictated by: Jose Fisher M.D. on 07/13/2025 at 10:59 Approved by: Jose Fisher M.D. on 07/13/2025 at 10:59
== END ==
PROVIDERS: PCP Student in an Organized Health Care Education/Training Program; Referring Provider Student in an Organized Health Care Education/Training Program; Visit Provider Nurse Practitioner Family
DX: R05.1 Acute cough (principal)
CPT/HCPCS: 71046; 87637

== ENCOUNTER → 2025-09-14 09:33 | Outpatient (CLI) | payer MEDICARE, OTHER, SELFPAY ==
--- NOTE | 2025-09-14 09:36 | DI.MG.S_ITS ---
MM diagnostic mammo BI, US axillary only rt: 09/14/2025 BI-RADS: 2 CLINICAL: 70-year old female for bilateral diagnostic mammogram and right diagnostic breast ultrasound. No Tyrer-Cuzick risk score calculation due to the patient's personal history of breast cancer. Patient reports a history of right breast carcinoma diagnosed at age 69. Status-post right lumpectomy with radiation therapy, chemotherapy and hormonal therapy. The patient is status-post reduction mammoplasty. The patient presents for evaluation of a painful right axillary lump which has been present since her surgery and has decreased in size over time. PRIOR EXAMS: 09/25/2024, 09/05/2024, 08/15/2024, 07/26/2023, 07/14/2022, 05/14/2021. MAMMOGRAPHY TECHNIQUE: 2D and 3D (tomosynthesis) digital mammographic views obtained, with additional images as needed for full coverage. Current study was also evaluated with a Computer Aided Detection (CAD) system. ULTRASOUND TECHNIQUE Exam is limited to the right axilla. Real-time wesley scale and color doppler imaging of the area of clinical interest was performed with image documentation. DENSITY C. The breasts are heterogeneously dense, which may obscure small masses. MAMMOGRAPHY FINDINGS Right (finding-1): MLO only, Axilla, measuring 2.2cm: Underlying surface marker and correlating with palpable lump there is a circumscribed, oval mass present. The mass is fat containing and located at the site of postsurgical changes, compatible with evolving fat necrosis. Right: Benign-appearing post-surgical changes noted on the right. Left: Benign-appearing post-surgical changes noted on the left. There are no suspicious masses, calcifications, or other findings in the breast. ULTRASOUND FINDINGS Right (finding-1): Axilla, measuring 2.8 x 1.4 x 1.8 cm: Underlying surface marker and correlating with palpable lump and also with findings on mammogram there is a complex mass. Doppler shows no vascularity. This corresponds to fat necrosis seen on the mammogram. IMPRESSION: * No evidence of malignancy with benign findings. RECOMMENDATIONS Right * Clinical follow-up is recommended, and further management of palpable abnormalities or other focal signs or symptoms should be based on the results of clinical evaluation. If palpable abnormality or other concerning symptom persists or progresses, further clinical evaluation should be considered. Bilateral * Annual screening mammography. COMMENTS: Findings and recommendations were conveyed to the patient during today's evaluation. OVERALL ASSESSMENT CATEGORY BI-RADS-2: Benign. The [employer] recommends annual screening mammography beginning at age 40 for women with average risk of breast cancer. ELECTRONICALLY SIGNED: Allison Xiong M.D. on 09/14/2025 at 12:59:22 PM PT Interpreting Station ID: [id number]
== END ==
LOC: MAMMO 09:35
PROVIDERS: PCP Student in an Organized Health Care Education/Training Program; Referring Provider Student in an Organized Health Care Education/Training Program; Visit Provider Internal Medicine Endocrinology, Diabetes & Metabolism
DX: C50.111 Malignant neoplasm of central portion of right female breast (principal); R22.31 Localized swelling, mass and lump, right upper limb; R92.331 Mammographic heterogeneous density, right breast; Z17.0 Estrogen receptor positive status [ER+]
CPT/HCPCS: 76882; 77066; G0279